=== PATIENT | male | born 1950 | race Caucasian/White ===

== ENCOUNTER 2019-02-08 13:49 | Inpatient (IN) | payer MEDICARE ==
[~2019-02-08] VITALS: Ht 185.4 cm; Wt 79.8 kg
[2019-02-08 16:00] VITALS: BP 148/79
--- NOTE | 2019-02-08 16:19 | HP ---
ADMIT DATE: 02/08/2019 CHIEF COMPLAINT AND HISTORY OF PRESENT ILLNESS: This is a 68-year-old white male well known to me from followup in the office. The patient came in because of abdominal pain, which has been going on for a week or so. He felt like he might have torn something in his abdomen working in the yard. His abdomen was quite distended in the office, diffusely tender with rebound tenderness. By his story, he did not have much of an appetite. Denied fevers and chills, was having no vomiting. Stools were working normally. He would notice after eating in about an hour that he would get more distended and more painful. Again, denied fevers or chills. Denied hematemesis, hematochezia, melena. He was felt to have an acute abdomen, admitted for CT scanning and surgical consultation. PAST MEDICAL HISTORY: Has been remarkable for history of vitamin B12 deficiency with a history of some depression and insomnia. Prior ring finger . MEDICATIONS: Include 40 mg of IM. recently. ALLERGIES: He has no known drug allergies. SOCIAL HISTORY: He is a smoker, does drink beer, does not use drugs. He is , lives alone. FAMILY HISTORY: Positive for atherosclerotic heart disease. REVIEW OF SYSTEMS: As mentioned above. PHYSICAL EXAMINATION: GENERAL: He is a well-developed, well-nourished white male, who appears uncomfortable. VITAL SIGNS: Stable. He is afebrile in the office. Pulse was elevated at 115. HEAD, EYES, EARS, NOSE AND THROAT: Remarkable for glasses. There is no icterus. NECK: Supple, without thyromegaly. CHEST: Clear to auscultation and percussion. HEART: Sinus tachycardia without S3, S4, or murmur. ABDOMEN: Very distended and diffusely tender with rebound, guarding throughout. He does have positive bowel sounds. EXTREMITIES: Without cyanosis, clubbing or edema. NEUROLOGIC: Intact. IMPRESSION: Acute abdomen with marked distention of uncertain etiology. PLAN: Admit. CT scanning, surgical consultation and plans to follow. TOYIN LUO MD DR: PHIL/sylvia JOB#: [id number] / [id number]
--- NOTE | 2019-02-08 17:15 | NUR ---
CALL PLACED TO DR. LUO FOR ORDERS DUE TO PATIENT IS A NEW ADMISSION, SPOKE WITH THE ANSWERING SERVICE, AWAITING A RETURN CALL AT THIS TIME.
--- NOTE | 2019-02-08 18:10 | NUR ---
CALL PLACED TO DR. LUO (SECOND CALL PLACED), SPOKE WITH THE ANSWERING SERVICE AND INFORMED THEM THAT THE RETURN CALL WAS FOR ORDERS AND THAT THIS WAS THE SECOND CALL. INFORMED THIS CASING CLEANER THAT SHE WOULD PLACE THE CALL AGAIN.
[2019-02-08 19:00] VITALS: BP 144/78
[2019-02-08] MEDS ORDERED: GABA300C18 PO (19:44)
[2019-02-08] MEDS ORDERED: TRAM50TA PO (19:44)
--- NOTE | 2019-02-08 19:50 | NUR ---
NURSING BENCH GRINDER NOTIFIED THAT THIS VISCOSITY TESTER HAD PLACED A CALL TO DR. LUO FOR NEW ADMISSION ORDERS TWICE BUT HAD NOT RECEIVED A CALL BACK, SHE INFORMED THIS VISCOSITY TESTER THAT SHE WOULD CALL/PAGE HIM AGAIN.
--- NOTE | 2019-02-08 20:43 | NUR ---
Dr Thomas notified about the patient as per survey supervisor. Dr Thomas gave the orders to restart the home medication and an order for DNR as per patient request.The nurse has restarted the home medication and put a DNR order.
[2019-02-08] MEDS ORDERED: traMADol 50 MG TABLET PO PRN (20:45)
[2019-02-08] MEDS: GABAPENTIN 300 MG CAPSULE. PO SCH (21:10)
[2019-02-08 23:00] VITALS: BP 138/83
--- NOTE | 2019-02-08 23:23 | NUR ---
The nurse paged Dr Gipson again for patient orders and the doctor did not return the call. This is after several attempts to reach him. The day shift nurse and the production assembly supervisor had tried reaching him with no success. The nurse had talked to Dr Thomas earlier on per production assembly supervisor instructions after failed attempts to reach Dr Gipson. Dr Thomas gave orders to restart the home medication and an order for DNR per patient request. Dr Thomas was unable to give more orders since he did not know the patient. The nurse administered the home Meds and discussed with the patient the benefits of not eating or drinking anything after midnight in anticipation of any procedure that might be done the following day. Patient decided on being NPO after midnight. The nurse will continue to monitor the patient.
[2019-02-09 03:00] VITALS: BP 148/82
[2019-02-09 07:00] VITALS: BP 153/84
[2019-02-09] MEDS: GABAPENTIN 300 MG CAPSULE. PO SCH ×3 (09:00→20:53)
[2019-02-09 09:45] LABS: BASO % 0 % (0-3); EOS % 0 % (0-3); HEMATOCRIT 35.6 % (39.0-53.0); HEMOGLOBIN 12.4 g/dL (13.0-17.5); LYMPH # 0.8 x10^3/uL (1.0-4.8); LYMPH % 10 % (24-48); MEAN CORPUSCULAR HEMOGLOBIN 33 pg (25-35); MEAN CORPUSCULAR HGB CONC 35 g/dL (31-37); MEAN CORPUSCULAR VOLUME 93 fL (79-100); MONO # 0.9 x10^3/uL (0.0-1.1); MONO % 12 % (0-9); NEUT # 6.2 x10^3uL (1.8-7.7); NEUT % 78 % (31-73); PLATELET COUNT 189 x10^3/uL (140-400); RED BLOOD COUNT 3.82 x10^6/uL (4.30-5.70); RED CELL DISTRIBUTION WIDTH 15.8 % (11.5-14.5)
[2019-02-09 09:50] LABS: ALBUMIN 1.9 g/dL (3.4-5.0); ALBUMIN/GLOBULIN RATIO 0.3 (1.0-1.7); CALCIUM 9.5 mg/dL (8.5-10.1); CREATININE 0.9 mg/dL (0.7-1.3); GFR 84.2; POTASSIUM 4.5 mmol/L (3.5-5.1); TOTAL BILIRUBIN 1.7 mg/dL (0.2-1.0); TOTAL PROTEIN 8.6 g/dL (6.4-8.2)
--- NOTE | 2019-02-09 10:13 | NUR ---
Patient getting frustrated about waiting for CT scan - CT called and they stated they are waiting on Dr. Gipson to return call on preference of Contrast options for the CT. Dr. Kellogg paged for his preference. Will continue to monitor.
[2019-02-09] MEDS ORDERED: CONTRAST GIVEN. MC PRN (10:45)
[2019-02-09] MEDS ORDERED: IOHEXOL 240 MG/ML 50ML VIAL. PO ONE (10:45)
[2019-02-09] MEDS ORDERED: IOHEXOL 300 MG/ML 100ML VIAL. IV ONE (10:45)
[2019-02-09 11:00] VITALS: BP 154/85
[2019-02-09] MEDS: MORPHINE SULFATE 2 MG/ML VIAL. IV PRN ×3 (12:16→23:06)
--- NOTE | 2019-02-09 12:19 | PDOC2 ---
CONSULT Date of Consult Date of Consult DATE: 02/09/19 TIME: 12:14 History of Present Illness Reason for Visit: The patient is a 68 year old male who was admitted due to progressing abdominal distension and pain. He states that he has noticed increasing distension over the last 2 weeks with no inciting factors. Over the last week he has noticed more persistent abdominal pain. The pain is fairly diffuse. He denies nausea or vomiting and has been able to eat normally. He has been passing gas and had a stool earlier today. Past Medical History Past Medical History chronic back pain, neuropathy Past Surgical History Past Surgical History denies Social History Quit ALCOHOL: other (significant prior history of alcohol use, none recently) Current Medications Current Medications Current Medications Gabapentin (Neurontin) 300 mg TID PO Last administered on 02/08/19at 21:10; Start 02/08/19 at 21:00 Tramadol HCl (Ultram) 50 mg PRN DAILY PRN PO PAIN Last administered on 02/08/19at 23:03; Start 02/08/19 at 20:45 Iohexol (Omnipaque 240 Mg/ml) 30 ml 1X ONCE PO Last administered on 02/09/19at 10:45; Start 02/09/19 at 10:45; Stop 02/09/19 at 10:46; Status DC Iohexol (Omnipaque 300 Mg/ml) 75 ml 1X ONCE IV Last administered on 02/09/19at 10:45; Start 02/09/19 at 10:45; Stop 02/09/19 at 10:46; Status DC Info (CONTRAST GIVEN -- Rx MONITORING) 1 each PRN DAILY PRN MC SEE COMMENTS; Start 02/09/19 at 10:45; Stop 02/11/19 at 10:44 Morphine Sulfate (Morphine Sulfate) 2 mg PRN Q2HR PRN IV PAIN; Start 02/09/19 at 12:15 Active Scripts Active Reported Tramadol Hcl 50 Mg Tablet 50 Mg PO DAILY PRN Gabapentin (Gabapentin) 300 Mg Capsule 300 Mg PO TID Allergies Allergies: Coded Allergies: No Known Drug Allergies (Unverified , 02/08/19) ROS General: No: Chills, Night Sweats, Fatigue, Malaise, Appetite, Other PSYCHOLOGICAL ROS: YES: Anxiety, Behavioral Disorder, Concentration difficultie , Decreased libido, Depression, Disorientation, Hallucinations, Hostility, Irritablity, Memory difficulties, Mood Swings, Obsessive thoughts, Physical a buse, Sexual abuse, Sleep disturbances, Suicidal ideation, Other HEENT: No: Heacaches, Visual Changes, Hearing change, Nasal congestion, Nasal discharge, Oral lesions, Sinus pain, Sore Throat, Epistaxis, Sneezing, Snoring, Tinnitus, Vertigo, Vocal changes, Other ALLERGY AND IMMUNOLOGY: No: Hives, Insect Bite Sensitivity, Itchy/Watery Eyes, Nasal Congestion, Post Nasal Drip, Seasonal Allergies, Other Hematological and Lymphatic: No: Bleeding Problems, Blood Clots, Blood Transfusions, Brusing, Night Sweats, Pallor, Swollen Lymph Nodes, Other ENDOCRINE: No: Breast Changes, Galactorrhea, Hair Pattern Changes, Hot Flashes, Malaise/lethargy, Mood Swings, Palpitations, Polydipsia/polyuria, Skin Changes, Temperature Intolerance, Unexpected Weight Changes, Other Respiratory: No: Cough, Hemoptysis, Orthopnea, Pleuritic Pain, Shortness of b reath, SOB with excertion, Sputum Changes, Stridor, Tachypnea, Wheezing, Other Cardiovascular: No Chest Pain, No Palpitations, No Orthopnea, No Paroxysmal Noc. Dyspnea, No Edema, No Lt Headedness, No Other Gastrointestinal: Yes Abdominal Pain, Yes Other (distension) Musculoskeletal: Yes Other Neurological: No Behavorial Changes, No Bowel/Bladder ControlChng, No Confusion, No Dizziness, No Gait Disturbance, No Headaches, No Impaired Coord/balance, No Memory Loss, No Numbness/Tingling, No Seizures, No Speech Problems, No Tremors, No Visual Changes, No Weakness, No Other Skin: No Dry Skin, No Eczema, No Hair Changes, No Lumps, No Mole Changes, No Mottling, No Nail Changes, No Pruritus, No Rash, No Skin Lesion Changes, No Other, No Acne Physical Exam General: Alert, Oriented X3 HEENT: Atraumatic Lungs: Clear to auscultation Heart: Regular rate Abdomen: Other (markedly distended, mildly tender with palpation diffusely) Extremities: No clubbing, No cyanosis Skin: No rashes Neuro: Normal speech Psych/Mental Status: Mental status NL Vitals VITALS Vital Signs Date Time Temp Pulse Resp B/P (MAP) Pulse Ox O2 Delivery O2 Flow Rate FiO2 02/09/19 11:00 98.0 90 16 154/85 (108) 97 Room Air 98.0 Labs Labs Laboratory Tests Test 02/09/19 09:05 White Blood Count 8.0 x10^3/uL (4.0-11.0) Red Blood Count 3.82 x10^6/uL (4.30-5.70) Hemoglobin 12.4 g/dL (13.0-17.5) Hematocrit 35.6 % (39.0-53.0) Mean Corpuscular Volume 93 fL (79-100) Mean Corpuscular Hemoglobin 33 pg (25-35) Mean Corpuscular Hemoglobin Concent 35 g/dL (31-37) Red Cell Distribution Width 15.8 % (11.5-14.5) Platelet Count 189 x10^3/uL (140-400) Neutrophils (%) (Auto) 78 % (31-73) Lymphocytes (%) (Auto) 10 % (24-48) Monocytes (%) (Auto) 12 % (0-9) Eosinophils (%) (Auto) 0 % (0-3) Basophils (%) (Auto) 0 % (0-3) Neutrophils # (Auto) 6.2 x10^3uL (1.8-7.7) Lymphocytes # (Auto) 0.8 x10^3/uL (1.0-4.8) Monocytes # (Auto) 0.9 x10^3/uL (0.0-1.1) Eosinophils # (Auto) 0.0 x10^3/uL (0.0-0.7) Basophils # (Auto) 0.0 x10^3/uL (0.0-0.2) Sodium Level 130 mmol/L (136-145) Potassium Level 4.5 mmol/L (3.5-5.1) Chloride Level 96 mmol/L (98-107) Carbon Dioxide Level 25 mmol/L (21-32) Anion Gap 9 (6-14) Blood Urea Nitrogen 12 mg/dL (8-26) Creatinine 0.9 mg/dL (0.7-1.3) Estimated GFR (Cockcroft-Gault) 84.2 BUN/Creatinine Ratio 13 (6-20) Glucose Level 76 mg/dL (70-99) Calcium Level 9.5 mg/dL (8.5-10.1) Total Bilirubin 1.7 mg/dL (0.2-1.0) Aspartate Amino Transf (AST/SGOT) 116 U/L (15-37) Alanine Aminotransferase (ALT/SGPT) 33 U/L (16-63) Alkaline Phosphatase 282 U/L (46-116) Total Protein 8.6 g/dL (6.4-8.2) Albumin 1.9 g/dL (3.4-5.0) Albumin/Globulin Ratio 0.3 (1.0-1.7) Laboratory Tests Test 02/09/19 09:05 White Blood Count 8.0 x10^3/uL (4.0-11.0) Red Blood Count 3.82 x10^6/uL (4.30-5.70) Hemoglobin 12.4 g/dL (13.0-17.5) Hematocrit 35.6 % (39.0-53.0) Mean Corpuscular Volume 93 fL (79-100) Mean Corpuscular Hemoglobin 33 pg (25-35) Mean Corpuscular Hemoglobin Concent 35 g/dL (31-37) Red Cell Distribution Width 15.8 % (11.5-14.5) Platelet Count 189 x10^3/uL (140-400) Neutrophils (%) (Auto) 78 % (31-73) Lymphocytes (%) (Auto) 10 % (24-48) Monocytes (%) (Auto) 12 % (0-9) Eosinophils (%) (Auto) 0 % (0-3) Basophils (%) (Auto) 0 % (0-3) Neutrophils # (Auto) 6.2 x10^3uL (1.8-7.7) Lymphocytes # (Auto) 0.8 x10^3/uL (1.0-4.8) Monocytes # (Auto) 0.9 x10^3/uL (0.0-1.1) Eosinophils # (Auto) 0.0 x10^3/uL (0.0-0.7) Basophils # (Auto) 0.0 x10^3/uL (0.0-0.2) Sodium Level 130 mmol/L (136-145) Potassium Level 4.5 mmol/L (3.5-5.1) Chloride Level 96 mmol/L (98-107) Carbon Dioxide Level 25 mmol/L (21-32) Anion Gap 9 (6-14) Blood Urea Nitrogen 12 mg/dL (8-26) Creatinine 0.9 mg/dL (0.7-1.3) Estimated GFR (Cockcroft-Gault) 84.2 BUN/Creatinine Ratio 13 (6-20) Glucose Level 76 mg/dL (70-99) Calcium Level 9.5 mg/dL (8.5-10.1) Total Bilirubin 1.7 mg/dL (0.2-1.0) Aspartate Amino Transf (AST/SGOT) 116 U/L (15-37) Alanine Aminotransferase (ALT/SGPT) 33 U/L (16-63) Alkaline Phosphatase 282 U/L (46-116) Total Protein 8.6 g/dL (6.4-8.2) Albumin 1.9 g/dL (3.4-5.0) Albumin/Globulin Ratio 0.3 (1.0-1.7) Assessment/Plan Assessment/Plan 68 year old male with marked abdominal distension, etiology unclear at this time. Labs and a CT scan have been ordered by Dr Gipson. Final recommendations pending further workup. I will follow, thanks for the consult. RADU TONY MD Feb 09, 2019 12:19
--- NOTE | 2019-02-09 12:21 | RAD ---
CT of the abdomen and pelvis with contrast, 02/09/2019: HISTORY: Abdominal pain and distention Multidetector CT imaging was performed following oral and IV administration of contrast. The heart is at the upper limits of normal in size. Coronary artery calcifications are present. There is a small amount of bilateral pleural fluid with mild associated atelectasis posteriorly in the lung bases. An incompletely visualized right lower lobe lucency likely reflects emphysema. There is a large volume of ascites with streaky mesenteric congestion and edema. The hepatic contour is irregular compatible with cirrhosis. There are several heterogeneous low density lesions in both lobes of the liver. While several of these could be cysts, others appear to be of higher density than simple cysts. The gallbladder is unremarkable. The pancreas is somewhat atrophic. The spleen is enlarged measuring 17 cm in craniocaudad extent. The kidneys show no evidence of obstruction. There is a 3 cm cyst in the lower pole the left kidney. A small low-density lesion in the upper pole the right kidney is too small to definitively characterize but is probably a cyst. There is moderate aortoiliac calcific plaquing. There are multiple small periaortic and pericaval lymph nodes without definite pathologic enlargement. The bowel loops are not dilated. There is a small hiatal hernia. There are adjacent nodular densities probably representing varices. A recanalized umbilical vein is evident. The portal vein is enlarged just to the right of midline measuring 3.4 cm. There is lack of enhancement of this structure lateral to this level compatible with portal vein thrombosis. No free air is evident in the abdomen. Moderate multilevel degenerative changes are present in the spine. There is a mild superior endplate deformity at L3 of indeterminate age. IMPRESSION: 1. Hepatic cirrhosis with low density lesions in both lobes of the liver raising the possibility of hepatocellular carcinoma or metastatic disease. 2. Splenomegaly. 3. Portal vein thrombosis. 4. Extensive mesenteric congestion and edema with a large volume of ascites. 5. Probable esophageal varices. 6. Small bilateral pleural effusions with bibasilar atelectasis. PQRS Compliance Statement: One or more of the following individualized dose reduction techniques were utilized for this examination: 1. Automated exposure control 2. Adjustment of the mA and/or kV according to patient size 3. Use of iterative reconstruction technique Electronically signed by: Rosas Alves MD (02/09/2019 12:19 PM) [facility]
[2019-02-09] MEDS: traMADol 50 MG TABLET PO PRN ×2 (14:32→20:53)
--- NOTE | 2019-02-09 14:56 | PDOC2 ---
GI CONSULT Reason For Consult: hepatic cirrhosis with lesions in aneesh liver lobes HPI: HPI: 68 y/o male directly admitted yesterday evening w/ concern for acute abdomen and need for surgical evaluation. CT today showed cirrhosis w/ liver lesions, splenomegaly, portal vein thrombosis, extensive mesenteric congestion w/ large volume ascites, probable esophageal varices, and small bilateral pleural effusions. We are asked to see re: CT findings. Labs notable for normal WBC, Hgb 12.4 w/ MCV 93, normal plt, Na 130, bili 1.7, AST 116, ALT 33, Alk Phos 282, albumin 1.9. He reports bloating x 2 weeks and diffuse abdominal pain x 1 week. No precipitating events though he has been doing a lot of yard work. No heartburn/reflux, dysphagia, n/v, change in appetite, weight loss, diarrhea, constipation, hematochezia, or melena. No h/o liver disease, hepatitis, blood transfusions, or IVDU. Used to drink a 6 pack of beer daily but quit 3 years ago. No GB or pancreas history - gallbladder was unremarkable on CT and pancreas was somewhat atrophic. No PUD history. No previous EGD. Colonoscopy for screening and change in bowel habits/diarrhea by Dr. Villa in 03/2015 showed medium-sized internal hemorrhoids, normal mucosa throughout the entire colon, 3mm hyperplastic polyp in the ascending colon, and 8mm tubulovillous adenoma in the distal sigmoid colon. No NSAID use. PMH: PMH: insomnia, B12 deficiency, neuropathy, arthritis, colon polyps, depression, alcohol abuse FH: Family History: No pertinent hx (denies cancers and liver disease) Social History: Smoke: Quit ALCOHOL: other (6 pack of beer daily in the past, sober x 3 years) Drugs: None ROS: GEN: Denies fevers, chills, sweats HEENT: Denies blurred vision, sore throat CV: Denies chest pain RESP: Denies shortness of air, cough GI: Per HPI : Denies hematuria, dysuria ENDO: Denies weight changes NEURO: Denies confusion, dizziness MSK: Denies weakness, joint pain/swelling SKIN: Denies jaundice, pruritus Vitals: Vitals: Vital Signs Date Time Temp Pulse Resp B/P (MAP) Pulse Ox O2 Delivery O2 Flow Rate FiO2 02/09/19 13:51 97 Room Air 02/09/19 11:00 98.0 90 16 154/85 (108) 98.0 Labs: Labs: Laboratory Tests Test 02/09/19 09:05 White Blood Count 8.0 x10^3/uL (4.0-11.0) Red Blood Count 3.82 x10^6/uL (4.30-5.70) Hemoglobin 12.4 g/dL (13.0-17.5) Hematocrit 35.6 % (39.0-53.0) Mean Corpuscular Volume 93 fL (79-100) Mean Corpuscular Hemoglobin 33 pg (25-35) Mean Corpuscular Hemoglobin Concent 35 g/dL (31-37) Red Cell Distribution Width 15.8 % (11.5-14.5) Platelet Count 189 x10^3/uL (140-400) Neutrophils (%) (Auto) 78 % (31-73) Lymphocytes (%) (Auto) 10 % (24-48) Monocytes (%) (Auto) 12 % (0-9) Eosinophils (%) (Auto) 0 % (0-3) Basophils (%) (Auto) 0 % (0-3) Neutrophils # (Auto) 6.2 x10^3uL (1.8-7.7) Lymphocytes # (Auto) 0.8 x10^3/uL (1.0-4.8) Monocytes # (Auto) 0.9 x10^3/uL (0.0-1.1) Eosinophils # (Auto) 0.0 x10^3/uL (0.0-0.7) Basophils # (Auto) 0.0 x10^3/uL (0.0-0.2) Sodium Level 130 mmol/L (136-145) Potassium Level 4.5 mmol/L (3.5-5.1) Chloride Level 96 mmol/L (98-107) Carbon Dioxide Level 25 mmol/L (21-32) Anion Gap 9 (6-14) Blood Urea Nitrogen 12 mg/dL (8-26) Creatinine 0.9 mg/dL (0.7-1.3) Estimated GFR (Cockcroft-Gault) 84.2 BUN/Creatinine Ratio 13 (6-20) Glucose Level 76 mg/dL (70-99) Calcium Level 9.5 mg/dL (8.5-10.1) Total Bilirubin 1.7 mg/dL (0.2-1.0) Aspartate Amino Transf (AST/SGOT) 116 U/L (15-37) Alanine Aminotransferase (ALT/SGPT) 33 U/L (16-63) Alkaline Phosphatase 282 U/L (46-116) Total Protein 8.6 g/dL (6.4-8.2) Albumin 1.9 g/dL (3.4-5.0) Albumin/Globulin Ratio 0.3 (1.0-1.7) Allergies: Coded Allergies: No Known Drug Allergies (Unverified , 02/08/19) Medications: Current Medications Medications (Trade) Dose Ordered Sig/Veto Route PRN Reason Start Time Stop Time Status Last Admin Dose Admin Gabapentin (Neurontin) 300 mg TID PO 02/08/19 21:00 02/08/19 21:10 Tramadol HCl (Ultram) 50 mg PRN DAILY PRN PO PAIN 02/08/19 20:45 02/09/19 13:55 DC 02/08/19 23:03 Iohexol (Omnipaque 240 Mg/ml) 30 ml 1X ONCE PO 02/09/19 10:45 02/09/19 10:46 DC 02/09/19 10:45 Iohexol (Omnipaque 300 Mg/ml) 75 ml 1X ONCE IV 02/09/19 10:45 02/09/19 10:46 DC 02/09/19 10:45 Morphine Sulfate (Morphine Sulfate) 2 mg PRN Q2HR PRN IV PAIN 02/09/19 12:15 02/09/19 12:16 Imaging: Imaging: CT A/P w/ oral and IV contrast 02/09/19 The heart is at the upper limits of normal in size. Coronary artery calcifications are present. There is a small amount of bilateral pleural fluid with mild associated atelectasis posteriorly in the lung bases. An incompletely visualized right lower lobe lucency likely reflects emphysema. There is a large volume of ascites with streaky mesenteric congestion and edema. The hepatic contour is irregular compatible with cirrhosis. There are several heterogeneous low density lesions in both lobes of the liver. While several of these could be cysts, others appear to be of higher density than simple cysts. The gallbladder is unremarkable. The pancreas is somewhat atrophic. The spleen is enlarged measuring 17 cm in craniocaudad extent. The kidneys show no evidence of obstruction. There is a 3 cm cyst in the lower pole the left kidney. A small low-density lesion in the upper pole the right kidney is too small to definitively characterize but is probably a cyst. There is moderate aortoiliac calcific plaquing. There are multiple small periaortic and pericaval lymph nodes without definite pathologic enlargement. The bowel loops are not dilated. There is a small hiatal hernia. There are adjacent nodular densities probably representing varices. A recanalized umbilical vein is evident. The portal vein is enlarged just to the right of midline measuring 3.4 cm. There is lack of enhancement of this structure lateral to this level compatible with portal vein thrombosis. No free air is evident in the abdomen. Moderate multilevel degenerative changes are present in the spine. There is a mild superior endplate deformity at L3 of indeterminate age. IMPRESSION: 1. Hepatic cirrhosis with low density lesions in both lobes of the liver raising the possibility of hepatocellular carcinoma or metastatic disease. 2. Splenomegaly. 3. Portal vein thrombosis. 4. Extensive mesenteric congestion and edema with a large volume of ascites. 5. Probable esophageal varices. 6. Small bilateral pleural effusions with bibasilar atelectasis. PE: GEN: NAD HEENT: Atraumatic, PERRL LUNGS: CTAB HEART: RRR ABD: NABS, significantly distended w/ tightness and discomfort, reducible umbilical hernia EXTREMITY: trace BLE edema SKIN: No rashes, no jaundice NEURO/PSYCH: A & O 3, anxious A/P: A/P: Abd distention/discomfort Normocytic anemia, hyponatremia, hypoalbuminemia, abnormal LFTs Abnormal CT w/ cirrhosis and liver lesions, splenomegaly, portal vein t hrombosis, large volume ascites, probable esophageal varices H/o alcohol overuse - says sober x 3 years CRC screen, h/o TVA - had colonoscopy in 2014 -- Returned to see w/ Dr. Villa. Will check additional labs and imaging (see orders) and ask for paracentesis w/ fluid studies. Okay to eat per GI. Note paracentesis was rescheduled for tomorrow per IRDEBORAH VALDES Feb 09, 2019 14:56
[2019-02-09 14:59] LABS: PROTHROMBIN TIME PATIENT 15.7 SEC (11.7-14.0)
[2019-02-09 15:00] VITALS: BP 149/83
--- NOTE | 2019-02-09 16:03 | RAD ---
Deep Doppler abdominal ultrasound, 02/09/2019: HISTORY: Abdominal pain, portal vein thrombosis Duplex evaluation of the hepatic vasculature was performed utilizing grayscale, color-flow and spectral Doppler analysis. The hepatic artery is unremarkable. A patent main portal vein could not be identified. There is a tubular structure of medium echogenicity at the gabrielle hepatis level compatible with a distended, thrombosed portal vein. There are additional serpiginous vessels at the gabrielle hepatis probably representing collateral veins. Patent hepatic veins are evident. Incidental note is made of irregularity of the hepatic contour compatible cirrhosis with a markedly heterogeneous internal echo pattern. There is a large volume of ascites. These findings were delineated on the current CT study. IMPRESSION: Enlarged, thrombosed main portal vein. Electronically signed by: Rosas Alves MD (02/09/2019 4:00 PM) [facility]
[2019-02-09 19:00] VITALS: BP 139/78
--- NOTE | 2019-02-09 22:19 | PN ---
DATE: 02/09/2019 DAILY PROGRESS NOTE LOCATION: Room 510. SUBJECTIVE: The patient is awake and alert, still with abdominal pain and no appetite. OBJECTIVE: VITAL SIGNS: Stable. He is afebrile. CHEST: Clear. HEART: Regular. ABDOMEN: Distended and diffusely tender. Since last evening, pain with distention of uncertain etiology. PLAN: Surgical consultations. We will do lab with plans to follow. TOYIN LUO MD DR: PHIL/sylvia JOB#: [id number] / [id number]
[2019-02-09 23:00] VITALS: BP 157/88
[2019-02-09 23:08] LABS: AFPT MARKER 34.3 ng/mL (0.0-8.3)
[2019-02-10] VITALS (9 sets, daily range): BP systolic 137–169; BP diastolic 75–90
[2019-02-10] MEDS: traMADol 50 MG TABLET PO PRN ×4 (03:17→23:52)
[2019-02-10 04:37] LABS: HEMATOCRIT 36.8 % (39.0-53.0); HEMOGLOBIN 12.6 g/dL (13.0-17.5); RED BLOOD COUNT 3.9 x10^6/uL (4.30-5.70); WHITE BLOOD COUNT 7.1 x10^3/uL (4.0-11.0)
[2019-02-10 04:53] LABS: ALBUMIN 1.9 g/dL (3.4-5.0); ALBUMIN/GLOBULIN RATIO 0.3 (1.0-1.7); CALCIUM 9.6 mg/dL (8.5-10.1); CREATININE 0.9 mg/dL (0.7-1.3); GFR 84.2; POTASSIUM 4.3 mmol/L (3.5-5.1); TOTAL BILIRUBIN 1.5 mg/dL (0.2-1.0); TOTAL PROTEIN 8.6 g/dL (6.4-8.2)
[2019-02-10] MEDS: GABAPENTIN 300 MG CAPSULE. PO SCH ×3 (08:16→22:15)
--- NOTE | 2019-02-10 08:47 | NUR ---
SW following pt for anticipated dc needs. Chart reviewed and pt is from home with family. No SW needs noted at this time.
--- NOTE | 2019-02-10 11:00 | PDOC ---
Subjective: Subjective: Better after paracentesis. Objective: Vital Signs: Vital Signs Date Time Temp Pulse Resp B/P (MAP) Pulse Ox O2 Delivery O2 Flow Rate FiO2 02/10/19 09:53 81 15 139/78 (98) 97 Room Air 02/10/19 07:00 98.0 98.0 Labs: Laboratory Tests Test 02/09/19 16:10 02/10/19 03:20 Tumor Marker Alpha Fetoprotein 34.3 ng/mL Carcinoembryonic Antigen Pending CA 19-9 Antigen Pending Hepatitis A IgM Antibody Nonreactive Hepatitis B Surface Antigen Nonreactive Hepatitis B Core IgM Antibody Nonreactive Hepatitis C IgG Antibody Reactive White Blood Count 7.1 x10^3/uL Red Blood Count 3.90 x10^6/uL Hemoglobin 12.6 g/dL Hematocrit 36.8 % Mean Corpuscular Volume 94 fL Mean Corpuscular Hemoglobin 32 pg Mean Corpuscular Hemoglobin Concent 34 g/dL Red Cell Distribution Width 16.0 % Platelet Count 194 x10^3/uL Sodium Level 131 mmol/L Potassium Level 4.3 mmol/L Chloride Level 96 mmol/L Carbon Dioxide Level 27 mmol/L Anion Gap 8 Blood Urea Nitrogen 13 mg/dL Creatinine 0.9 mg/dL Estimated GFR (Cockcroft-Gault) 84.2 BUN/Creatinine Ratio 14 Glucose Level 83 mg/dL Calcium Level 9.6 mg/dL Total Bilirubin 1.5 mg/dL Aspartate Amino Transf (AST/SGOT) 107 U/L Alanine Aminotransferase (ALT/SGPT) 33 U/L Alkaline Phosphatase 282 U/L Total Protein 8.6 g/dL Albumin 1.9 g/dL Albumin/Globulin Ratio 0.3 Imaging: Abd Doppler 02/09 The hepatic artery is unremarkable. A patent main portal vein could not be identified. There is a tubular structure of medium echogenicity at the gabrielle hepatis level compatible with a distended, thrombosed portal vein. There are additional serpiginous vessels at the gabrielle hepatis probably representing collateral veins. Patent hepatic veins are evident. Incidental note is made of irregularity of the hepatic contour compatible cirrhosis with a markedly heterogeneous internal echo pattern. There is a large volume of ascites. These findings were delineated on the current CT study. IMPRESSION: Enlarged, thrombosed main portal vein. Paracentesis 02/10 report pending PE: GEN: NAD LUNGS: CTAB HEART: RRR ABD: softer, less distended, non-tender NEURO/PSYCH: A & O 3, anxious A/P: Cirrhosis, liver lesions (on CT), PVT, ascites - now s/p paracentesis H/o alcohol abuse - now sober Hep C Ab + - PCR pending Elevated AFP -- Await fluid studies. Will review w/ Dr. Villa. DEBORAH YAN Feb 10, 2019 11:00
--- NOTE | 2019-02-10 12:14 | PDOC ---
PROGRESS NOTES Subjective Subjective resting quietly, less pain after paracentesis Objective Objective Vital Signs Date Time Temp Pulse Resp B/P (MAP) Pulse Ox O2 Delivery O2 Flow Rate FiO2 02/10/19 11:12 Room Air 02/10/19 11:00 97.7 83 17 152/85 (107) 95 97.7 Intake and Output 02/10/19 06:59 Intake Total 1040 ml Balance 1040 ml Intake Oral 1040 ml # Voids 3 Physical Exam Abdomen: Soft, No tenderness Heart: Regular rate Extremities: No clubbing, No cyanosis General: Alert, Oriented X3 HEENT: Atraumatic Lungs: Clear to auscultation Psych/Mental Status: Mental status NL Assessment Assessment Cirrhosis, ascites, portal vein thrombosis Plan Plan of Care No surgical recs, await final GI plans Comment Review of Relevant I have reviewed the following items alena (where applicable) has been applied. Labs Laboratory Tests Test 02/09/19 09:05 02/09/19 16:10 02/10/19 03:20 White Blood Count 8.0 x10^3/uL (4.0-11.0) 7.1 x10^3/uL (4.0-11.0) Red Blood Count 3.82 x10^6/uL (4.30-5.70) 3.90 x10^6/uL (4.30-5.70) Hemoglobin 12.4 g/dL (13.0-17.5) 12.6 g/dL (13.0-17.5) Hematocrit 35.6 % (39.0-53.0) 36.8 % (39.0-53.0) Mean Corpuscular Volume 93 fL (79-100) 94 fL (79-100) Mean Corpuscular Hemoglobin 33 pg (25-35) 32 pg (25-35) Mean Corpuscular Hemoglobin Concent 35 g/dL (31-37) 34 g/dL (31-37) Red Cell Distribution Width 15.8 % (11.5-14.5) 16.0 % (11.5-14.5) Platelet Count 189 x10^3/uL (140-400) 194 x10^3/uL (140-400) Neutrophils (%) (Auto) 78 % (31-73) Lymphocytes (%) (Auto) 10 % (24-48) Monocytes (%) (Auto) 12 % (0-9) Eosinophils (%) (Auto) 0 % (0-3) Basophils (%) (Auto) 0 % (0-3) Neutrophils # (Auto) 6.2 x10^3uL (1.8-7.7) Lymphocytes # (Auto) 0.8 x10^3/uL (1.0-4.8) Monocytes # (Auto) 0.9 x10^3/uL (0.0-1.1) Eosinophils # (Auto) 0.0 x10^3/uL (0.0-0.7) Basophils # (Auto) 0.0 x10^3/uL (0.0-0.2) Prothrombin Time 15.7 SEC (11.7-14.0) Prothromb Time International Ratio 1.3 (0.8-1.1) Sodium Level 130 mmol/L (136-145) 131 mmol/L (136-145) Potassium Level 4.5 mmol/L (3.5-5.1) 4.3 mmol/L (3.5-5.1) Chloride Level 96 mmol/L (98-107) 96 mmol/L (98-107) Carbon Dioxide Level 25 mmol/L (21-32) 27 mmol/L (21-32) Anion Gap 9 (6-14) 8 (6-14) Blood Urea Nitrogen 12 mg/dL (8-26) 13 mg/dL (8-26) Creatinine 0.9 mg/dL (0.7-1.3) 0.9 mg/dL (0.7-1.3) Estimated GFR (Cockcroft-Gault) 84.2 84.2 BUN/Creatinine Ratio 13 (6-20) 14 (6-20) Glucose Level 76 mg/dL (70-99) 83 mg/dL (70-99) Calcium Level 9.5 mg/dL (8.5-10.1) 9.6 mg/dL (8.5-10.1) Total Bilirubin 1.7 mg/dL (0.2-1.0) 1.5 mg/dL (0.2-1.0) Aspartate Amino Transf (AST/SGOT) 116 U/L (15-37) 107 U/L (15-37) Alanine Aminotransferase (ALT/SGPT) 33 U/L (16-63) 33 U/L (16-63) Alkaline Phosphatase 282 U/L (46-116) 282 U/L (46-116) Total Protein 8.6 g/dL (6.4-8.2) 8.6 g/dL (6.4-8.2) Albumin 1.9 g/dL (3.4-5.0) 1.9 g/dL (3.4-5.0) Albumin/Globulin Ratio 0.3 (1.0-1.7) 0.3 (1.0-1.7) Tumor Marker Alpha Fetoprotein 34.3 ng/mL (0.0-8.3) Hepatitis A IgM Antibody Nonreactive (Nonreactive) Hepatitis B Surface Antigen Nonreactive (Nonreactive) Hepatitis B Core IgM Antibody Nonreactive (Nonreactive) Hepatitis C IgG Antibody Reactive (Nonreactive) Laboratory Tests Test 02/09/19 16:10 02/10/19 03:20 Tumor Marker Alpha Fetoprotein 34.3 ng/mL (0.0-8.3) Hepatitis A IgM Antibody Nonreactive (Nonreactive) Hepatitis B Surface Antigen Nonreactive (Nonreactive) Hepatitis B Core IgM Antibody Nonreactive (Nonreactive) Hepatitis C IgG Antibody Reactive (Nonreactive) White Blood Count 7.1 x10^3/uL (4.0-11.0) Red Blood Count 3.90 x10^6/uL (4.30-5.70) Hemoglobin 12.6 g/dL (13.0-17.5) Hematocrit 36.8 % (39.0-53.0) Mean Corpuscular Volume 94 fL (79-100) Mean Corpuscular Hemoglobin 32 pg (25-35) Mean Corpuscular Hemoglobin Concent 34 g/dL (31-37) Red Cell Distribution Width 16.0 % (11.5-14.5) Platelet Count 194 x10^3/uL (140-400) Sodium Level 131 mmol/L (136-145) Potassium Level 4.3 mmol/L (3.5-5.1) Chloride Level 96 mmol/L (98-107) Carbon Dioxide Level 27 mmol/L (21-32) Anion Gap 8 (6-14) Blood Urea Nitrogen 13 mg/dL (8-26) Creatinine 0.9 mg/dL (0.7-1.3) Estimated GFR (Cockcroft-Gault) 84.2 BUN/Creatinine Ratio 14 (6-20) Glucose Level 83 mg/dL (70-99) Calcium Level 9.6 mg/dL (8.5-10.1) Total Bilirubin 1.5 mg/dL (0.2-1.0) Aspartate Amino Transf (AST/SGOT) 107 U/L (15-37) Alanine Aminotransferase (ALT/SGPT) 33 U/L (16-63) Alkaline Phosphatase 282 U/L (46-116) Total Protein 8.6 g/dL (6.4-8.2) Albumin 1.9 g/dL (3.4-5.0) Albumin/Globulin Ratio 0.3 (1.0-1.7) Medications Current Medications Gabapentin (Neurontin) 300 mg TID PO Last administered on 02/10/19at 08:16; Start 02/08/19 at 21:00 Tramadol HCl (Ultram) 50 mg PRN DAILY PRN PO PAIN Last administered on 02/08/19at 23:03; Start 02/08/19 at 20:45; Stop 02/09/19 at 13:55; Status DC Iohexol (Omnipaque 240 Mg/ml) 30 ml 1X ONCE PO Last administered on 02/09/19at 10:45; Start 02/09/19 at 10:45; Stop 02/09/19 at 10:46; Status DC Iohexol (Omnipaque 300 Mg/ml) 75 ml 1X ONCE IV Last administered on 02/09/19at 10:45; Start 02/09/19 at 10:45; Stop 02/09/19 at 10:46; Status DC Info (CONTRAST GIVEN -- Rx MONITORING) 1 each PRN DAILY PRN MC SEE COMMENTS; Start 02/09/19 at 10:45; Stop 02/11/19 at 10:44 Morphine Sulfate (Morphine Sulfate) 2 mg PRN Q2HR PRN IV PAIN Last administered on 02/09/19at 23:06; Start 02/09/19 at 12:15 Tramadol HCl (Ultram) 100 mg PRN Q6HRS PRN PO PAIN Last administered on 02/10/19at 11:12; Start 02/09/19 at 14:00 Active Scripts Active Reported Tramadol Hcl 50 Mg Tablet 100 Mg PO PRN Q6HRS PRN Gabapentin (Gabapentin) 300 Mg Capsule 300 Mg PO TID Vitals/I & O Vital Sign - Last 24 Hours 02/09/19 02/09/19 02/09/19 02/09/19 12:16 14:32 15:00 15:48 Temp 97.7 97.7 Pulse 95 Resp 16 B/P (MAP) 149/83 (105) Pulse Ox 98 O2 Delivery Room Air Room Air Room Air Room Air 02/09/19 02/09/19 02/09/19 02/09/19 19:00 20:00 20:53 23:00 Temp 98.1 98.4 98.1 98.4 Pulse 88 96 Resp 18 15 18 B/P (MAP) 139/78 (98) 157/88 (111) Pulse Ox 93 93 96 O2 Delivery Room Air Room Air Room Air Room Air 02/09/19 02/10/19 02/10/19 02/10/19 23:06 00:00 03:00 03:17 Temp 98.6 98.6 Pulse 90 Resp 16 18 14 B/P (MAP) 139/90 (106) Pulse Ox 93 93 94 93 O2 Delivery Room Air Room Air Room Air Room Air 02/10/19 02/10/19 02/10/19 02/10/19 04:26 07:00 08:00 09:25 Temp 98.0 98.0 Pulse 82 90 Resp 18 16 B/P (MAP) 145/75 (98) 160/80 (106) Pulse Ox 93 92 95 O2 Delivery Room Air Room Air Room Air Room Air 02/10/19 02/10/19 02/10/19 02/10/19 09:40 09:53 11:00 11:12 Temp 97.7 97.7 Pulse 85 81 83 Resp 15 15 17 B/P (MAP) 137/75 (95) 139/78 (98) 152/85 (107) Pulse Ox 96 97 95 O2 Delivery Room Air Room Air Room Air Room Air Intake and Output 02/09/19 02/09/19 02/10/19 14:59 22:59 06:59 Intake Total 0 ml 640 ml 400 ml Balance 0 ml 640 ml 400 ml RADU TONY MD Feb 10, 2019 12:14
[2019-02-10 12:20] LABS: BF CLARITY CLEAR; BF COLOR STRAW; BF RBC COUNT 30 /cmm (Not Established); BF SOURCE ASCITES; BF WBC COUNT 215 /cmm (Not Established)
[2019-02-10 12:36] LABS: BF OTHER % 18 %; BF PMN % 3 %
[2019-02-10 12:37] LABS: BF MON % 79 %
--- NOTE | 2019-02-10 13:06 | RAD ---
Ultrasound-guided paracentesis 02/10/2019 1:03 PM Procedure: The risks and benefits of the procedure were discussed the patient. Informed consent was obtained. A timeout procedure was performed. Sonographic evaluation of the abdomen was performed demonstrating ascites . The right lower quadrant was prepped and draped using maximum sterile barrier technique. 1% lidocaine without epinephrine was administered for local anesthesia. Real-time ultrasonographic guidance was used in passing a 5 Ma[place] Yueh catheter into the fluid collection. 3 L of serous ascites was removed. The catheter was removed and pressure held to achieve hemostasis. A sterile dressing was applied. Impression: Successful ultrasound-guided paracentesis
--- NOTE | 2019-02-10 15:04 | PDOC ---
Provider Note Provider Note IR NOTE Paracentesis completed today. Cirrhotic liver morphology, Hx HCV, liver nodules, and elevated AFP. Findings raise concern for hepatocellular carcinoma. Plan to await results of cytology and consider image guided liver biopsy based on result. Patient would be higher risk for bleeding given ascites. A concomitant abdominal drain would be considered. Also would have to work around anticoagulation, if initiated to portal venous thrombosis. DENNISE NORTON MD Feb 10, 2019 15:04
--- NOTE | 2019-02-10 20:50 | PN ---
DATE: 02/10/2019 LOCATION: Room ____. SUBJECTIVE: The patient is awake and alert ____ abdominal pain, is still with significant ____. OBJECTIVE: VITAL SIGNS: Stable. He is afebrile. His exam is stable without any distention of the abdomen, no icterus. Alpha-fetoprotein is elevated. ____ CEA and CA 19-9 antigens are pending. Hepatitis C antibody is positive. IMAGING: Yesterday shows an x-ray ____ densely lesions in both lobes of the liver, raising the possibility of hepatocellular carcinoma, metastatic disease, he had splenomegaly, portal vein thrombosis, extensive mesenteric congestion ____ ascites, probable esophageal varices. Surgery and GI have been appreciated. ASSESSMENT: Abdominal pain due to ascites, likely accelerated due to portal vein thrombosis, with history of hepatitis C and possible hepatocellular carcinoma. PLAN: Await paracentesis today with results ____ with plans on therapy to be based on preliminary investigation. TOYIN LUO MD DR: PHIL/sylvia JOB#: [id number] / [id number]
[2019-02-11] VITALS (7 sets, daily range): BP systolic 132–149; BP diastolic 74–81
[2019-02-11] MEDS: traMADol 50 MG TABLET PO PRN ×2 (06:05→17:24)
[2019-02-11] MEDS: GABAPENTIN 300 MG CAPSULE. PO SCH ×3 (08:11→20:53)
--- NOTE | 2019-02-11 09:39 | PDOC ---
Subjective: Subjective: Feeling better - would like to go home tomorrow. Objective: Objective: D/w Dr. Ugarte earlier this morning - anticoag recs depending on size of esophageal varices, also wondering about our recs for Hep C treatment. D/w Dr. Villa - could proceed w/ EGD this afternoon. Reviewed IR note - consider liver biopsy later, high risk for bleeding w/ ascites and if need for anti-coagulation. Vital Signs: Vital Signs Date Time Temp Pulse Resp B/P (MAP) Pulse Ox O2 Delivery O2 Flow Rate FiO2 02/11/19 08:11 Room Air 02/11/19 07:00 98.4 85 16 138/79 (98) 91 98.4 PE: GEN: NAD LUNGS: CTAB HEART: RRR ABD: some distention/ascites - improved NEURO/PSYCH: A & O 3 A/P: Cirrhosis w/ ascites and liver lesions w/ elevated AFP and PVT - h/o alcohol abuse, +Hep C Ab, concern for HCC -- He agrees to EGD this afternoon for evaluation of esophageal varices. DC soon? DEBORAH YAN Feb 11, 2019 09:39
--- NOTE | 2019-02-11 09:49 | PDOC2 ---
CONSULT Date of Consult Date of Consult DATE: 02/11/19 TIME: 09:39 Reason for consultation: Portal vein thrombosis Consult: Hematology oncology, Dr. Edward Ugarte History of present illness: He is a 68-year-old man with abdominal pain, acute, worsening over the last couple weeks, associated with bloating, the abdominal pain was diffuse, moderate, and immediately improved after 3 L paracentesis of serous fluid. He also has evidence of portal vein thrombosis and concern for liver lesions that could be metastatic with cirrhosis. Past medical history: Back pain Neuropathy Liver masses Cirrhosis splenomegaly Portal vein thrombus Hepatitis C positive, never treated, did not know he had at, unsure where he got it Likely esophageal varices Ascites Bilateral pleural effusions Hyponatremia Past surgical history: Paracentesis Colonoscopy Allergies: No known drug allergies Medications: See attached list Social history: 3 children, 6 grandchildren, since 2014, lives alone, quit tobacco in August 2018, heavy drinking in the past but quit a few years ago, would like to get home for Father's Day Family history: Heart disease Review of systems: Weight loss, abdominal pain improved after paracentesis, chronic back pain, otherwise denies current 10 point review of systems Physical exam: Vitals reviewed Gen.: Thin elderly man in no acute distress, resting in bed HEENT: mucous membranes moist, head normocephalic atraumatic Neck: Supple, no lymphadenopathy Lymph nodes: No palpable lymphadenopathy neck or axilla Lungs: Breathing comfortably w/o respiratory distress Abdomen: Soft, nontender, slightly distended Extremities: No cyanosis or edema, spoon nails, no asterixis Skin: No obvious rashes or skin breakdown Neuro: Alert and oriented 3 Psych: Normal mood and affect Lab reviewed: White count 7.1, hemoglobin 12.6, platelets 194, INR 1.3 T bili 1.5 Creatinine 0.9 Albumin 1.9 AFP 34 Hepatitis C positive Rads reviewed: 09 February abdomen ultrasound with enlarged thrombosed main portal vein and CT abdomen and pelvis with cirrhosis, bilateral liver lesions, splenomegaly to 17 cm, portal vein thrombosis, extensive mesenteric congestion and edema, with large volume ascites, probable varices, and small bilateral pleural effusions Case discussed with: Patient, records reviewed in [facility] and [facility] as available, including labs and radiology, please see note for summary details. Assessment and Plan: He is a 68-year-old man with evidence of cirrhosis, elevated alpha-fetoprotein, liver lesions, portal vein thrombosis, and possible varices. Abdomen symptoms improved post paracentesis for ascites. Concern for hepatocellular carcinoma: Alpha-fetoprotein only slightly enlarged elevated, could be related to hepatitis C, would agree with biopsy of liver lesion if cytology from paracentesis negative Portal vein thrombosis: Would agree with treatment with anticoagulation, platelet count is normal, INR is less than 1.5, however would want to ensure no large varices, would recommend EGD to assess varices prior to beginning a nticoagulation, would recommend 6 months initially, CEA and CA a 19 9 are pending, regarding anticoagulation could start treatment dose Lovenox if no large varices versus novel anticoagulant, novel anticoagulant preferred to Coumadin in his case likely as the INR could be affected by his underlying liver disease, and renal function is normal, could consider low-dose apixaban if con cerned for risk for bleeding Ascites: We'll have to see if it continues to recur, potential drain? Hepatitis C: Wonder if he would benefit from treatment at this point? Have asked GI to comment Disposition: He would like to be home for Father's Day Thank you kindly for this consultation, and please don't hesitate to call me with any questions, also the on-call physician will be available over the weekend as needed. Social History Quit ALCOHOL: other (6 pack of beer daily in the past, sober x 3 years) Drugs: None Current Medications Current Medications Current Medications Gabapentin (Neurontin) 300 mg TID PO Last administered on 02/11/19at 08:11; Start 02/08/19 at 21:00 Tramadol HCl (Ultram) 50 mg PRN DAILY PRN PO PAIN Last administered on 02/08/19at 23:03; Start 02/08/19 at 20:45; Stop 02/09/19 at 13:55; Status DC Iohexol (Omnipaque 240 Mg/ml) 30 ml 1X ONCE PO Last administered on 02/09/19at 10:45; Start 02/09/19 at 10:45; Stop 02/09/19 at 10:46; Status DC Iohexol (Omnipaque 300 Mg/ml) 75 ml 1X ONCE IV Last administered on 02/09/19at 10:45; Start 02/09/19 at 10:45; Stop 02/09/19 at 10:46; Status DC Info (CONTRAST GIVEN -- Rx MONITORING) 1 each PRN DAILY PRN MC SEE COMMENTS; Start 02/09/19 at 10:45; Stop 02/11/19 at 10:44 Morphine Sulfate (Morphine Sulfate) 2 mg PRN Q2HR PRN IV PAIN Last administered on 02/09/19at 23:06; Start 02/09/19 at 12:15 Tramadol HCl (Ultram) 100 mg PRN Q6HRS PRN PO PAIN Last administered on 02/11/19at 06:05; Start 02/09/19 at 14:00 Active Scripts Active Reported Tramadol Hcl 50 Mg Tablet 100 Mg PO PRN Q6HRS PRN Gabapentin (Gabapentin) 300 Mg Capsule 300 Mg PO TID Allergies Allergies: Coded Allergies: No Known Drug Allergies (Unverified , 02/08/19) Vitals VITALS Vital Signs Date Time Temp Pulse Resp B/P (MAP) Pulse Ox O2 Delivery O2 Flow Rate FiO2 02/11/19 08:11 Room Air 02/11/19 07:00 98.4 85 16 138/79 (98) 91 98.4 Labs Labs Laboratory Tests Test 02/09/19 16:10 02/10/19 03:20 02/10/19 09:30 Tumor Marker Alpha Fetoprotein 34.3 ng/mL (0.0-8.3) Hepatitis A IgM Antibody Nonreactive (Nonreactive) Hepatitis B Surface Antigen Nonreactive (Nonreactive) Hepatitis B Core IgM Antibody Nonreactive (Nonreactive) Hepatitis C IgG Antibody Reactive (Nonreactive) White Blood Count 7.1 x10^3/uL (4.0-11.0) Red Blood Count 3.90 x10^6/uL (4.30-5.70) Hemoglobin 12.6 g/dL (13.0-17.5) Hematocrit 36.8 % (39.0-53.0) Mean Corpuscular Volume 94 fL (79-100) Mean Corpuscular Hemoglobin 32 pg (25-35) Mean Corpuscular Hemoglobin Concent 34 g/dL (31-37) Red Cell Distribution Width 16.0 % (11.5-14.5) Platelet Count 194 x10^3/uL (140-400) Sodium Level 131 mmol/L (136-145) Potassium Level 4.3 mmol/L (3.5-5.1) Chloride Level 96 mmol/L (98-107) Carbon Dioxide Level 27 mmol/L (21-32) Anion Gap 8 (6-14) Blood Urea Nitrogen 13 mg/dL (8-26) Creatinine 0.9 mg/dL (0.7-1.3) Estimated GFR (Cockcroft-Gault) 84.2 BUN/Creatinine Ratio 14 (6-20) Glucose Level 83 mg/dL (70-99) Calcium Level 9.6 mg/dL (8.5-10.1) Total Bilirubin 1.5 mg/dL (0.2-1.0) Aspartate Amino Transf (AST/SGOT) 107 U/L (15-37) Alanine Aminotransferase (ALT/SGPT) 33 U/L (16-63) Alkaline Phosphatase 282 U/L (46-116) Total Protein 8.6 g/dL (6.4-8.2) Albumin 1.9 g/dL (3.4-5.0) Albumin/Globulin Ratio 0.3 (1.0-1.7) Body Fluid Source Ascites Body Fluid Color Straw Body Fluid Clarity Clear Body Fluid Nucleated Cells 215 /cmm (Not Established) Body Fluid Mononuclear WBCs (%) 79 % Body Fluid Polymorphonuclear Cells 3 % Body Fluid Total RBCs Counted 30 /cmm (Not Established) Body Fluid Other Cells (%) 18 % EDWARD UGARTE MD Feb 11, 2019 09:49
[2019-02-11 12:17] LABS: CEA 3.7 ng/mL (0.0-4.7)
[2019-02-11] MEDS ORDERED: IV RINGERS,LACTATED 1000ML 1,000 ML IV SCH (15:29)
[2019-02-11] MEDS ORDERED: MIDAZOLAM HCL/PF 2 MG/2 ML VIAL. IV PRN (15:30)
[2019-02-11] MEDS ORDERED: LIDOCAINE 1% PF 2 ML VIAL. ID PRN (15:30)
[2019-02-11] MEDS ORDERED: fentaNYL PF VIAL 100 MCG/2 ML VIAL IV PRN ×2 (15:30)
[2019-02-11] MEDS ORDERED: MIDAZOLAM HCL/PF 5 MG/5 ML VIAL. ONE (15:41)
[2019-02-11] MEDS ORDERED: fentaNYL PF VIAL 100 MCG/2 ML VIAL ONE (15:41)
[2019-02-11] MEDS ORDERED: MIDAZOLAM HCL/PF 5 MG/5 ML VIAL. IV ONE ×3 (16:41→16:45)
[2019-02-11] MEDS ORDERED: fentaNYL PF VIAL 100 MCG/2 ML VIAL IV ONE ×2 (16:42→16:48)
--- NOTE | 2019-02-11 16:53 | PDOC4 ---
PROCEDURE Procedure EGD to assess portal hypertension and varices Sedation- moderated Versed 4 mg , Fentanyl 50 mcg Findings: distal esophagitis Mild grade I varices- small Mild gastritis suggestive of protal gastropathy- no ulcers or erosions and no bleeding Normal duodenum Plan- continue present plans based on these findings of very mild varices, low risk for anti- coagulation for PVT as proposed by Hem-onc. Will defer to them on treatment options and plans MELANIA MIRELES MD Feb 11, 2019 16:53
--- NOTE | 2019-02-11 17:06 | PATHOLOGY ---
Note [facility] Accession Number: [id number] TESTS RESULT FLAG UNITS REF RANGE LAB Clinician Provided Cytology Information No. of containers..01 Other (Miscellaneous) Source: ASCITES DIAGNOSIS: 02 ASCITES NEGATIVE FOR MALIGNANT CELLS. FOCALLY REACTIVE MESOTHELIAL CELLS AND INFLAMMATORY CELLS PRESENT. THIS INTERPRETATION INCLUDES EVALUATION OF A CELL BLOCK. Signed out by: 02 Mario Wasserman MD, Pathologist NPI- [id number] Performed by: Yolanda Beverly, [employer] Car[employer] Operations Inspector ([facility]) Gross description: 01 33ML, YELLOW, CLOUDY /LCS FLAG LEGEND: L-Low Normal,H-High Normal,LL-Alert Low,HH-Alert High <-Panic Low,>-Panic High,A-Abnormal,AA-Critical Abnormal Performed at: [address] [place] [address] Darwin Perez MD, 02 [facility] [address] [place] [address] Mario Wasserman MD, Specimen Comment: A courtesy copy of this report has been sent to Specimen Comment: [phone], , . Specimen Comment: Report sent to ,DR DEAL / DR JOSE Performed at: [address], [place], [place] [id number] MD Darwin Perez MD Phone: [phone]
[2019-02-11] MEDS: APIXABAN 5 MG TABLET. PO SCH (20:53)
[2019-02-12 03:59] VITALS: BP 151/79
[2019-02-12 07:00] VITALS: BP 152/82
[2019-02-12] MEDS: GABAPENTIN 300 MG CAPSULE. PO SCH (08:34)
[2019-02-12] MEDS: APIXABAN 5 MG TABLET. PO SCH (08:34)
[2019-02-12] MEDS: traMADol 50 MG TABLET PO PRN (08:37)
[2019-02-12 11:00] VITALS: BP 146/85
[2019-02-12] MEDS ORDERED: APIX5TAB PO (11:51)
--- NOTE | 2019-02-12 11:57 | PDOC ---
G I PROGRESS NOTE Subjective No complaints. Says on blood thinner. Abdomen "about the same". Physical Exam Lungs clear. RRR Abdomen round with some ascites, not tense. Not tender. Review of Relevant I have reviewed the following items alena (where applicable) has been applied. Labs Microbiology 02/10/19 Anaerobic/Aerobic Culture, Resulted Pending 02/10/19 Anaerobic Culture Result 1 (EUGENIO), Resulted Pending 02/10/19 Aerobic Culture, Resulted Pending 02/10/19 Aerobic Culture Result 1 (EUGENIO), Resulted Pending 02/10/19 Gram Stain - Final, Resulted 02/10/19 Gram Stain Result 1 (EUGENIO) - Final, Resulted 02/10/19 Gram Stain Result 2 (EUGENIO) - Final, Resulted Cytology on ascites negative. HCV RNA pending. Medications Current Medications Gabapentin (Neurontin) 300 mg TID PO Last administered on 02/12/19at 08:34; Start 02/08/19 at 21:00 Tramadol HCl (Ultram) 50 mg PRN DAILY PRN PO PAIN Last administered on 02/08/19at 23:03; Start 02/08/19 at 20:45; Stop 02/09/19 at 13:55; Status DC Iohexol (Omnipaque 240 Mg/ml) 30 ml 1X ONCE PO Last administered on 02/09/19at 10:45; Start 02/09/19 at 10:45; Stop 02/09/19 at 10:46; Status DC Iohexol (Omnipaque 300 Mg/ml) 75 ml 1X ONCE IV Last administered on 02/09/19at 10:45; Start 02/09/19 at 10:45; Stop 02/09/19 at 10:46; Status DC Info (CONTRAST GIVEN -- Rx MONITORING) 1 each PRN DAILY PRN MC SEE COMMENTS; Start 02/09/19 at 10:45; Stop 02/11/19 at 10:44; Status DC Morphine Sulfate (Morphine Sulfate) 2 mg PRN Q2HR PRN IV PAIN Last administered on 02/09/19at 23:06; Start 02/09/19 at 12:15 Tramadol HCl (Ultram) 100 mg PRN Q6HRS PRN PO PAIN Last administered on 02/12/19at 08:37; Start 02/09/19 at 14:00 Midazolam HCl (Versed) 2 mg PRN 1X PRN IV PRIOR TO PROCEDURE; Start 02/11/19 at 15:30; Stop 02/12/19 at 15:29 Fentanyl Citrate (Fentanyl 2ml Vial) 25 mcg PRN Q5MIN PRN IV X 2 DOSES FOR PAIN; Start 02/11/19 at 15:30; Stop 02/12/19 at 15:29 Fentanyl Citrate (Fentanyl 2ml Vial) 50 mcg PRN Q5MIN PRN IV X 2 DOSES FOR PAIN; Start 02/11/19 at 15:30; Stop 02/12/19 at 15:29 Ringer's Solution 1,000 ml @ 125 mls/hr Q8H IV Last administered on 02/11/19at 15:32; Start 02/11/19 at 15:29; Stop 02/11/19 at 16:59; Status DC Lidocaine HCl (Xylocaine-Mpf 1% 2ml Vial) 2 ml 1X PRN PRN ID IV START; Start 02/11/19 at 15:30; Stop 02/12/19 at 15:29 Midazolam HCl (Versed) 5 mg STK-MED ONCE .ROUTE ; Start 02/11/19 at 15:41; Stop 02/11/19 at 15:42; Status DC Fentanyl Citrate (Fentanyl 2ml Vial) 100 mcg STK-MED ONCE .ROUTE ; Start 02/11 at 15:41; Stop 02/11/19 at 15:42; Status DC Midazolam HCl (Versed) 5 mg STK-MED ONCE IV Last administered on 02/11/19at 16: 41; Start 02/11/19 at 16:41; Stop 02/11/19 at 16:42; Status DC Fentanyl Citrate (Fentanyl 2ml Vial) 100 mcg STK-MED ONCE IV Last administered on 02/11/19at 16:42; Start 02/11/19 at 16:42; Stop 02/11/19 at 16:46; Status DC Midazolam HCl (Versed) 5 mg STK-MED ONCE IV Last administered on 02/11/19at 16:43; Start 02/11/19 at 16:43; Stop 02/11/19 at 16:46; Status DC Midazolam HCl (Versed) 5 mg STK-MED ONCE IV Last administered on 02/11/19at 16:45; Start 02/11/19 at 16:45; Stop 02/11/19 at 16:46; Status DC Fentanyl Citrate (Fentanyl 2ml Vial) 100 mcg STK-MED ONCE IV Last administered on 02/11/19at 16:48; Start 02/11/19 at 16:48; Stop 02/11/19 at 16:49; Status DC Apixaban (Eliquis) 5 mg BID PO Last administered on 02/12/19at 08:34; Start 02/11/19 at 21:00 Active Scripts Active Reported Tramadol Hcl 50 Mg Tablet 100 Mg PO PRN Q6HRS PRN Gabapentin (Gabapentin) 300 Mg Capsule 300 Mg PO TID Vitals/I & O Vital Sign - Last 24 Hours 02/11/19 02/11/19 02/11/19 02/11/19 15:00 15:19 15:22 16:41 Temp 98.4 97.3 98.4 97.3 Pulse 87 93 96 Resp 16 16 20 B/P (MAP) 143/81 (101) 153/92 Pulse Ox 93 94 97 O2 Delivery Room Air Room Air Room Air Nasal Cannula O2 Flow Rate 2 02/11/19 02/11/19 02/11/19 02/11/19 16:46 16:52 17:02 17:24 Temp 98.5 98.5 Pulse 88 83 86 Resp B/P (MAP) 136/80 120/68 Pulse Ox 98 97 94 O2 Delivery Nasal Cannula Nasal Cannula Room Air Room Air O2 Flow Rate 2 2 02/11/19 02/11/19 02/11/19 02/11/19 17:27 19:59 20:00 23:59 Temp 98.1 98.6 98.1 98.6 Pulse 67 88 95 Resp B/P (MAP) 132/78 (96) 141/81 (101) 149/78 (101) Pulse Ox 99 94 92 O2 Delivery Room Air Room Air Room Air Room Air 02/12/19 02/12/19 02/12/19 02/12/19 03:59 07:00 08:37 09:37 Temp 100.2 98.6 100.2 98.6 Pulse 97 101 Resp 14 14 B/P (MAP) 151/79 (103) 152/82 (105) Pulse Ox 93 92 92 O2 Delivery Room Air Room Air Room Air Room Air O2 Flow Rate 2.0 02/12/19 11:00 Temp 98.6 98.6 Pulse 101 Resp 17 B/P (MAP) 146/85 (105) Pulse Ox 90 O2 Delivery Room Air Intake and Output 02/11/19 02/11/19 02/12/19 15:00 23:00 07:00 Intake Total 240 ml 340 ml 680 ml Output Total 0 ml Balance 240 ml 340 ml 680 ml Assessment Portal vein thrombosis, acute? Subacute? Cirrhosis. Probably malignant hepatic tumor--primary?, secondary? Multiple positive tumor markers. Plan of Care Note Continue as now. Await pending data. Liver biopsy? MADELINE GRACIA MD Feb 12, 2019 11:57
[2019-02-12] MEDS ORDERED: ANTI-COAG MONITOR BY PHARMACY. MC PRN (12:45)
[2019-02-12 13:15] LABS: HCV ULTRA QUANT PCR 353000 IU/mL (.)
--- NOTE | 2019-02-12 14:10 | DS ---
DATE OF DISCHARGE: 02/12/2019 PRIMARY DIAGNOSIS: Abdominal pain. ADDITIONAL DIAGNOSES: Cirrhosis of the liver, hepatitis C by testing, ascites--symptomatic, low density lesions in both lobes of the liver with a question of hepatocellular carcinoma versus metastatic disease, splenomegaly, portal vein thrombosis. CHIEF COMPLAINT AND HISTORY OF PRESENT ILLNESS: This is a 68-year-old white male is well known to me from followup in the office. The patient presented with a week's worth of abdominal distention and pain to the office on the day of admission. He was diffusely tender with some rebound and admitted, was felt to be probably an acute abdomen. SUMMARY OF STAY: The patient was admitted. CT scanning showed hepatic cirrhosis with a low density lesions in both lobes of the liver, raising the possibility of a hepatocellular carcinoma or metastatic disease, also showed splenomegaly and portal vein thrombosis, also showed extensive mesenteric congestion and edema with a large volume of ascites and probable esophageal varices with small bilateral pleural effusions with bibasilar atelectasis. Ultrasound shows an enlarged thrombus in main portal vein. He did undergo paracentesis on the with final cytology being negative for malignant cells and the patient is likely going to need liver biopsy as an outpatient. He was symptomatically much better after the paracentesis. Hematology and GI saw him in consultation and only change in medications going home is that of Eliquis 5 mg b.i.d. My suspicion is he will need ongoing paracentesis at this time and we may need to put some sort of a catheter in if this becomes too frequent. DISPOSITION: The patient is discharged to home, regular diet, activity as tolerated. Office, Thursday, Thursday. DISCHARGE MEDICATIONS: That of his regular home medications plus Eliquis 5 mg b.i.d. TOYIN LUO MD DR: PHIL/sylvia JOB#: [id number] / [id number]
--- NOTE | 2019-02-12 14:27 | NUR ---
Discharge Note: SHANNA TIERNEY Discharge instructions and discharge home medications reviewed with Patient and a copy given. All questions have been answered and understanding verbalized. The following instructions and handouts were given: Discharge Instructions, Follow Up Care and Apt, Prescription Discontinued lines and drains: PIV removed, Catheter intact. Patient discharged to Home with Self-Care via Private Vehicle
--- NOTE | 2019-02-12 15:08 | PN ---
DATE: 02/11/2019 LOCATION: Room 510. SUBJECTIVE: The patient is awake, alert, feels much better, after the paracentesis was able to sleep last night and able to eat better this morning. OBJECTIVE: VITAL SIGNS: Stable. He is afebrile. Three liters of ascitic fluid was removed, with studies pending. There is no answer per GI from the ascitic fluid as far as what we are dealing with, they are suggesting a liver biopsy. He would like to be home for Father's Day, and I told him to discuss this with GI as we can certainly do some of this as an outpatient at this point in time and told him I expect to fluid to return until we were able to deal with underlying etiology. CHEST: Clear. HEART: Regular. ABDOMEN: Much softer. ASSESSMENT: 1. Ascites with liver masses and cirrhosis and hepatitis C, likely hepatocellular carcinoma, but ____ diagnosis today. 2. Portal vein thrombosis. PLAN: Continue present care with GI decisions as far as further workup. TOYIN LUO MD DR: PHIL/sylvia JOB#: [id number] / [id number]
== END 2019-02-12 13:30 | disposition home or self-care (01) | DRG 432 ==
LOC: 5 NORTH 15:07
PROVIDERS: ADMIT Family Medicine; ATTEND Family Medicine
PROC: 0W9G3ZZ Drainage of Peritoneal Cavity, Percutaneous Approach (ICD-10-PCS; principal; 2019-02-10)
PROC: 0DJ08ZZ Inspection of Upper Intestinal Tract, Via Natural or Artificial Opening Endoscopic (ICD-10-PCS; 2019-02-11)
DX: K74.60 Unspecified cirrhosis of liver (principal); I81 Portal vein thrombosis; I85.10 Secondary esophageal varices without bleeding; J98.11 Atelectasis; E87.1 Hypo-osmolality and hyponatremia; R18.8 Other ascites; J90 Pleural effusion, not elsewhere classified; K20.9 Esophagitis, unspecified; K29.70 Gastritis, unspecified, without bleeding; D64.9 Anemia, unspecified; F10.10 Alcohol abuse, uncomplicated; F17.210 Nicotine dependence, cigarettes, uncomplicated; F32.9 Major depressive disorder, single episode, unspecified; E88.09 Other disorders of plasma-protein metabolism, not elsewhere classified; G89.29 Other chronic pain; Z60.2 Problems related to living alone; G62.9 Polyneuropathy, unspecified; M19.90 Unspecified osteoarthritis, unspecified site; Z82.49 Family history of ischemic heart disease and other diseases of the circulatory system
CPT/HCPCS: 36415; 43235; 49083; 74177; 80053; 82105; 82150; 82378; 82945; 83615; 84157; 85025; 85027; 85610; 86301; 86705; 86709; 86803; 87071; 87075; 87340; 87521; 88112; 88305; 89050; 93976; J2250; J2270; J3010; J7120; Q9966; Q9967

== ENCOUNTER 2019-02-23 08:23 | Outpatient (CLI) | payer MEDICARE ==
[2019-02-23] VITALS (9 sets, daily range): BP systolic 110–149; BP diastolic 67–82
[~2019-02-23] VITALS: Ht 185.4 cm; Wt 77.1 kg
[~2019-02-23 08:23] MED LIST: APIX5TAB PO; GABA300C18 PO; TRAM50TA PO
[2019-02-23] MEDS ORDERED: GADOTERATE 7.5 MMOL/15ML VIAL. IVP ONE (09:00)
[2019-02-23] MEDS ORDERED: GABA300C18 PO (10:10)
[2019-02-23 10:27] LABS: BASO % 0 % (0-3); EOS # 0.1 x10^3/uL (0.0-0.7); EOS % 1 % (0-3); HEMOGLOBIN 12.7 g/dL (13.0-17.5); LYMPH # 1.1 x10^3/uL (1.0-4.8); LYMPH % 14 % (24-48); MEAN CORPUSCULAR HEMOGLOBIN 32 pg (25-35); MEAN CORPUSCULAR HGB CONC 34 g/dL (31-37); MEAN CORPUSCULAR VOLUME 95 fL (79-100); MONO # 0.8 x10^3/uL (0.0-1.1); MONO % 10 % (0-9); NEUT # 6.1 x10^3uL (1.8-7.7); NEUT % 75 % (31-73); PLATELET COUNT 201 x10^3/uL (140-400); RED BLOOD COUNT 3.92 x10^6/uL (4.30-5.70); WHITE BLOOD COUNT 8.1 x10^3/uL (4.0-11.0)
[2019-02-23 10:37] LABS: PROTHROMBIN TIME PATIENT 16.2 SEC (11.7-14.0)
[2019-02-23] MEDS ORDERED: LIDOCAINE 1%/EPI 1:100,000 20 ML VIAL. ONE (10:47)
[2019-02-23 10:50] LABS: CALCIUM 9.4 mg/dL (8.5-10.1); GFR 74.5; POTASSIUM 4.7 mmol/L (3.5-5.1)
[2019-02-23] MEDS ORDERED: fentaNYL PF VIAL 100 MCG/2 ML VIAL ONE (11:07)
[2019-02-23] MEDS ORDERED: MIDAZOLAM HCL/PF 5 MG/5 ML VIAL. ONE (11:07)
[2019-02-23] MEDS ORDERED: ALBUMIN HUMAN 25% 100 ML IV ONE ×2 (12:38→13:00)
--- NOTE | 2019-02-23 12:52 | RAD ---
Ultrasound-guided paracentesis 02/23/2019 12:48 PM Procedure: The risks and benefits of the procedure were discussed the patient. Informed consent was obtained. A timeout procedure was performed. Sonographic evaluation of the abdomen was performed demonstrating ascites . The left lower quadrant was prepped and draped using maximum sterile barrier technique. 1% lidocaine without epinephrine was administered for local anesthesia. Real-time ultrasonographic guidance was used in passing a 5 Armenian Yueh catheter into the fluid collection. 5 L of serous ascites was removed. The catheter was removed and pressure held to achieve hemostasis. A sterile dressing was applied. Impression: Successful ultrasound-guided paracentesis
--- NOTE | 2019-02-23 13:17 | RAD ---
EXAM: MRI ABDOMEN WITH AND WITHOUT CONTRAST. HISTORY: Liver mass, abdominal distention. TECHNIQUE: MRI of the abdomen was performed before and after the intravenous administration of 15 mL Dotarem. COMPARISON: 02/09/2019. FINDINGS: Liver: Extensive mild T2 hyperintensity throughout the right hepatic lobe is consistent with a large hepatocellular carcinoma. Multiple additional small nodules scattered throughout the left lobe are consistent with multifocal disease. The main mass measures 14 cm in greatest dimension. The largest left lobe nodule measures 4.5 cm. There is enhancing tumor thrombus throughout the right portal vein, extending into the left portal vein and main portal vein. Biliary tree: The gallbladder wall thickening and irregularity may reflect liver disease, prominent pericholecystic veins and ascites. No clear stones are identified. The common duct is mildly dilated to 1 cm without a clear distal obstructing lesion. There are no suspicious pancreatic parenchymal lesions. The pancreatic duct is not dilated. Other findings: The spleen is enlarged at 16 cm. There is a large amount of ascites. There are small bilateral pleural effusions. A cyst at the left renal lower pole measures 2.5 cm. The adrenal glands are unremarkable. IMPRESSION: 1. Large right hepatic lobe mass with multiple satellite nodules throughout the left hepatic lobe and a bulky tumor thrombus. This is consistent with extensive multifocal hepatocellular carcinoma. 2. Large ascites. Moderate splenomegaly. 3. Gallbladder wall thickening most likely reflects liver disease. The common duct is mildly dilated without cause for distal obstruction. Electronically signed by: Mehrdad Freitas MD (02/23/2019 1:14 PM) [facility]
--- NOTE | 2019-02-23 13:49 | NUR ---
Discharge Note: FARHEEN TIERNEY Discharge instructions and discharge home medications reviewed with patient, son and daughter and a copy given. All questions have been answered and understanding verbalized. Patient tolerated juice with no difficulties, patient did not want to eat any food. The following instructions and handouts were given: Paracentesis. Discontinued lines and drains: PIV left AC, dressing clean dry intact. Patient discharged to home with son and daughter via ambulated [facility].
--- NOTE | 2019-02-24 16:06 | PATHOLOGY ---
Note [facility] Accession Number: [id number] TESTS RESULT FLAG UNITS REF RANGE LAB Clinician Provided Cytology Information No. of containers..01 Other (Miscellaneous) Source: ASCITES FLUID DIAGNOSIS: 02 ASCITES FLUID NEGATIVE FOR MALIGNANT CELLS. FOCALLY REACTIVE MESOTHELIAL CELLS AND FEW INFLAMMATORY CELLS PRESENT. THIS INTERPRETATION INCLUDES EVALUATION OF A CELL BLOCK. Signed out by: 02 Mario Wasserman MD, Pathologist NPI- [id number] Performed by: Yolanda Beverly, Oncology Account Specialist ([facility]) Gross description: 01 30ML, YELLOW, CLEAR /LCS FLAG LEGEND: L-Low Normal,H-High Normal,LL-Alert Low,HH-Alert High <-Panic Low,>-Panic High,A-Abnormal,AA-Critical Abnormal Performed at: [address] [place] [address] Darwin Perez MD, 02 [facility] [address] [place] [address] Mario Wasserman MD, Specimen Comment: A duplicate report has been generated due to demographic updates. Performed at: [address], [place], [place] [id number] MD Darwin Perez MD Phone: [phone]
== END 2019-02-23 13:40 | disposition home or self-care (01) ==
LOC: MRI 08:23
PROVIDERS: ATTEND Family Medicine
DX: R18.8 Other ascites (principal); E53.8 Deficiency of other specified B group vitamins; G47.00 Insomnia, unspecified; F32.9 Major depressive disorder, single episode, unspecified
CPT/HCPCS: 36415; 49083; 74183; 80048; 85025; 85610; 88112; 88305; A9575; P9046

== ENCOUNTER → 2019-03-02 | Outpatient (CLI) | payer MEDICARE ==
[2019-02-23 13:03] VITALS: BP 137/68
[~2019-03-02] MED LIST changes: +CONTRAST GIVEN. MC PRN; +IOHEXOL 300 MG/ML 100ML VIAL. IV ONE
--- NOTE | 2019-03-02 12:28 | RAD ---
Examination: CT CHEST W/CONTRAST History: Hepatocellular carcinoma Comparison/Correlation: CT abdomen pelvis with oral contrast 02/09/2019 Findings: Axial images of chest were obtained following IV contrast. Sagittal and coronal reformatted images were provided. Extensive centrilobular emphysematous involvement of the lung dickson noted. Small bilateral pleural effusions. Adjacent atelectasis at the costophrenic sulci greater on the right. Bronchial wall thickening involving the right lower lobe at the posterior basilar aspect is evident along with the suggestion of mild mucous plugging. No pneumothorax. No focal pulmonary nodule or mass lesion. Significant proximal left anterior descending coronary arterial calcification is present. No pericardial effusion. No enlarged thoracic lymph nodes. Large amount of upper abdominal ascites noted. Nodular contour of the liver compatible with cirrhosis or other fibrotic process is identified. Multiple low-attenuation lesions involving the liver are present corresponding to findings on recent CT abdomen and pelvis examination. Liver is not fully included for purposes of this exam. Impression: Pleural effusions. Adjacent atelectasis. Right lower lobe basilar findings of bronchitis and suggestion of mucus plugging. Slight progression of findings since prior CT abdomen and pelvis with contrast exam dated 09/11/2018. Centrilobular emphysema. Ascites. Hepatic masses. Hepatic cirrhosis or other fibrotic process. PQRS Compliance Statement: One or more of the following individualized dose reduction techniques were utilized for this examination: 1. Automated exposure control 2. Adjustment of the mA and/or kV according to patient size 3. Use of iterative reconstruction technique Electronically signed by: Ramakrishna Reddy MD (03/02/2019 12:25 PM) [facility]
--- NOTE | 2019-03-02 14:46 | RAD ---
Examination: BONE SCAN WHOLE BODY History: Hepatocellular carcinoma staging Comparison/Correlation: CT chest with contrast 03/02/2019, MRI abdomen without and with contrast 02/23/2019, CT abdomen and pelvis with contrast 02/09/2019 Findings: 2520 mCi technetium 99m MDP was intravenously administered for purposes of total-body bone scintigraphy. Small focus of nonspecific uptake involving the left lateral abdominal wall soft tissues is present. Uptake of radiotracer involving the bony structures is unremarkable with no findings to suggest osteoblastic or osteolytic metastatic disease. Kidneys and urinary bladder visualized. Impression: No evidence of bony metastatic disease. Electronically signed by: Ramakrishna Reddy MD (03/02/2019 2:43 PM) [facility]
== END | disposition home or self-care (01) ==
LOC: NM 07:44
PROVIDERS: ATTEND Internal Medicine Hematology & Oncology
DX: J43.2 Centrilobular emphysema (principal); J90 Pleural effusion, not elsewhere classified; J98.11 Atelectasis; J92.9 Pleural plaque without asbestos; I25.10 Atherosclerotic heart disease of native coronary artery without angina pectoris; R18.8 Other ascites; R16.0 Hepatomegaly, not elsewhere classified; Z85.05 Personal history of malignant neoplasm of liver
CPT/HCPCS: 71260; 78306; A9503; Q9967

== ENCOUNTER 2019-03-08 09:44 | Outpatient (CLI) | payer MEDICARE ==
[~2019-03-08] VITALS: Ht 185.4 cm; Wt 79.4 kg
[2019-03-08] VITALS (9 sets, daily range): BP systolic 124–150; BP diastolic 67–93
[~2019-03-08 09:44] MED LIST changes: -CONTRAST GIVEN. MC PRN; -IOHEXOL 300 MG/ML 100ML VIAL. IV ONE
[2019-03-08] MEDS ORDERED: ALBUMIN HUMAN 25% 100 ML IV ONE ×4 (11:24→11:45)
--- NOTE | 2019-03-08 12:45 | NUR ---
Discharge Note: FARHEEN TIERNEY Discharge instructions and discharge home medications reviewed with Patient and a copy given. All questions have been answered and understanding verbalized. The following instructions and handouts were given: Paracentesis Discontinued lines and drains: Lt wrist 22g IV discontinued with tip intact on removal. Patient discharged to home with via private car. Pt leaves at this time in no apparent distress.
--- NOTE | 2019-03-08 14:06 | RAD ---
Ultrasound-guided paracentesis 03/08/2019 2:01 PM Procedure: The risks and benefits of the procedure were discussed the patient. Informed consent was obtained. A timeout procedure was performed. Sonographic evaluation of the abdomen was performed demonstrating ascites . The right lower quadrant was prepped and draped using maximum sterile barrier technique. 1% lidocaine without epinephrine was administered for local anesthesia. Real-time ultrasonographic guidance was used in passing a 5 Lithuanian Yueh catheter into the fluid collection. 7 L of serous ascites was removed. The catheter was removed and pressure held to achieve hemostasis. A sterile dressing was applied. Impression: Successful ultrasound-guided paracentesis
== END 2019-03-08 12:45 | disposition home or self-care (01) ==
LOC: INTRAD 09:44
PROVIDERS: ATTEND Internal Medicine Hematology & Oncology
DX: R18.8 Other ascites (principal)
CPT/HCPCS: 49083; P9046

== ENCOUNTER 2019-03-18 06:56 | Outpatient (CLI) | payer MEDICARE ==
[2019-03-18] VITALS (8 sets, daily range): BP systolic 121–146; BP diastolic 65–91
[~2019-03-18] VITALS: Ht 185.4 cm; Wt 77.1 kg
[2019-03-18] MEDS ORDERED: ALBUMIN HUMAN 25% 100 ML IV ONE ×2 (08:29→08:45)
--- NOTE | 2019-03-18 09:25 | NUR ---
Discharge Note: FARHEEN TIERNEY Discharge instructions and discharge home medications reviewed with Patient and a copy given. All questions have been answered and understanding verbalized. The following instructions and handouts were given: Post Paracent Discontinued lines and drains: Right AC IV tip intact. Patient discharged to home with self via car.
--- NOTE | 2019-03-18 11:42 | RAD ---
Ultrasound-guided paracentesis 03/18/2019 11:38 AM Procedure: The risks and benefits of the procedure were discussed the patient. Informed consent was obtained. A timeout procedure was performed. Sonographic evaluation of the abdomen was performed demonstrating ascites . The right lower quadrant was prepped and draped using maximum sterile barrier technique. 1% lidocaine without epinephrine was administered for local anesthesia. Real-time ultrasonographic guidance was used in passing a 5 [place] Yueh catheter into the fluid collection. 7 L of serous ascites was removed. The catheter was removed and pressure held to achieve hemostasis. A sterile dressing was applied. Impression: Successful ultrasound-guided paracentesis
== END 2019-03-18 09:25 | disposition home or self-care (01) ==
LOC: INTRAD 06:56
PROVIDERS: ATTEND Internal Medicine Hematology & Oncology
DX: R18.8 Other ascites (principal)
CPT/HCPCS: 49083; P9046

== ENCOUNTER 2019-03-29 06:58 | Outpatient (CLI) | payer MEDICARE ==
[2019-03-29] VITALS (8 sets, daily range): BP systolic 111–140; BP diastolic 65–79
[~2019-03-29] VITALS: Ht 185.4 cm; Wt 74.8 kg
[2019-03-29 08:05] LABS: BASO % 0 % (0-3); EOS % 0 % (0-3); HEMATOCRIT 36.6 % (39.0-53.0); HEMOGLOBIN 12.3 g/dL (13.0-17.5); LYMPH % 9 % (24-48); MEAN CORPUSCULAR HEMOGLOBIN 33 pg (25-35); MEAN CORPUSCULAR HGB CONC 34 g/dL (31-37); MEAN CORPUSCULAR VOLUME 99 fL (79-100); MONO # 0.9 x10^3/uL (0.0-1.1); MONO % 8 % (0-9); NEUT # 8.7 x10^3/uL (1.8-7.7); NEUT % 82 % (31-73); PLATELET COUNT 232 x10^3/uL (140-400); RED BLOOD COUNT 3.69 x10^6/uL (4.30-5.70); RED CELL DISTRIBUTION WIDTH 17.2 % (11.5-14.5); WHITE BLOOD COUNT 10.6 x10^3/uL (4.0-11.0)
[2019-03-29 08:16] LABS: PROTHROMBIN TIME PATIENT 17.1 SEC (11.7-14.0)
[2019-03-29] MEDS ORDERED: MIDAZOLAM HCL/PF 2 MG/2 ML VIAL. ONE (08:53)
[2019-03-29] MEDS ORDERED: fentaNYL PF VIAL 100 MCG/2 ML VIAL ONE (08:53)
[2019-03-29] MEDS ORDERED: LIDOCAINE 1%/EPI 1:100,000 20 ML VIAL. ONE (09:07)
[2019-03-29] MEDS ORDERED: LIDOCAINE 1%/EPI 1:100,000 20 ML VIAL. IJ ONE (09:30)
[2019-03-29] MEDS ORDERED: MIDAZOLAM HCL/PF 2 MG/2 ML VIAL. IV ONE (09:30)
[2019-03-29] MEDS ORDERED: fentaNYL PF VIAL 100 MCG/2 ML VIAL IV ONE (09:30)
[2019-03-29] MEDS ORDERED: ALBUMIN HUMAN 25% 100 ML IV ONE ×4 (09:55→10:00)
--- NOTE | 2019-03-29 11:53 | NUR ---
Discharge Note: FARHEEN TIERNEY Discharge instructions and discharge home medications reviewed with patient and daughter and a copy given. All questions have been answered and understanding verbalized. The following instructions and handouts were given: Moderate sedation, abdominal drain placement and infection control. Discontinued lines and drains: right wrist/hand PIV, dressing clean dry intact. Patient discharged to home with daughter via wheelchair to private vehicle.
--- NOTE | 2019-03-29 16:10 | RAD ---
03/29/2019 1:04 PM Procedure: Tunneled peritoneal drainage catheter placement Indication: Recurrent malignant ascites Consent: The procedure was explained in its entirety to the patient or the patients designated national account representative by a member of the treatment team, including a discussion of the risks, benefits and commonly accepted alternatives to the procedure, as well as the expected consequences of no therapy whatsoever. Discussion of the risks included, but was not limited to, those that are most frequent and those that are rare but possibly severe or life-threatening, as well as the possibility of unforeseen complications. All elements of maximal sterile barrier technique including the use of a cap, mask, sterile gown, sterile gloves, large sterile sheet, appropriate hand hygiene, and 2% chlorhexidine for cutaneous antisepsis (or acceptable alternative antiseptic per current guidelines) were followed for this procedure. The right lower quadrant was prepped and draped using maximum sterile barrier technique. 1% lidocaine without epinephrine was administered for local anesthesia. Real-time ultrasonographic guidance was used in passing a 5 Liberian sheathed needle into the peritoneum. Fluid was aspirated. A cuffed catheter was advanced from a small dermatotomy several cm anterior to the access site, to the access site. It was then advanced through a peel away sheath into the peritoneum . Serous ascites was removed. A sterile dressing was applied. Impression: Successful ultrasound-guided placement of a tunneled peritoneal drain. Sedation The procedure was performed under conscious sedation, including continuous cardiopulmonary monitoring via a dedicated sedation nurse. Face to face sedation time : 20 minutes
[2019-03-31 14:11] LABS: HCV ULTRA QUANT PCR 260000 IU/mL (.)
[2019-04-10] MEDS ORDERED: HYDR2VIA2 IV (12:38)
[2019-04-10] MEDS ORDERED: LORA2VIA IV (12:38)
[2019-04-10] MEDS ORDERED: PROC10VI IV (12:38)
== END 2019-03-29 12:00 | disposition home or self-care (01) ==
LOC: INTRAD 06:58
PROVIDERS: ATTEND Internal Medicine Hematology & Oncology
DX: Z45.2 Encounter for adjustment and management of vascular access device (principal); R18.0 Malignant ascites; Z79.899 Other long term (current) drug therapy; Z79.01 Long term (current) use of anticoagulants
CPT/HCPCS: 36415; 43245; 49418; 85025; 85610; 85730; 86706; 87340; 87521; 99152; C1729; J0690; J2250; J3010; J3490; P9046; 76942; 99153

== ENCOUNTER 2019-03-31 06:48 | Outpatient (CLI) | payer MEDICARE ==
[~2019-03-31] VITALS: Ht 185.4 cm; Wt 74.8 kg
[2019-03-31] VITALS (14 sets, daily range): BP systolic 104–137; BP diastolic 52–73
[2019-03-31] MEDS ORDERED: LIDOCAINE WITH 8.4% SOD BICARB 3 ML DISP.SYRIN. ONE (08:25)
--- NOTE | 2019-03-31 08:31 | NUR ---
Pt to IR lab for ultrasound guided biopsy. MD at bedside using ultrasound to assess peritoneal fluid level; Pleurex catheter used to drain existing fluid.
[2019-03-31] MEDS ORDERED: MIDAZOLAM HCL/PF 2 MG/2 ML VIAL. ONE (08:35)
[2019-03-31] MEDS ORDERED: fentaNYL PF VIAL 100 MCG/2 ML VIAL ONE (08:35)
[2019-03-31] MEDS ORDERED: GELATIN SPONGE SIZE 12-7MM SPONGE. ONE (08:47)
[2019-03-31] MEDS ORDERED: fentaNYL PF VIAL 100 MCG/2 ML VIAL IV ONE (09:00)
[2019-03-31] MEDS ORDERED: LIDOCAINE WITH 8.4% SOD BICARB 3 ML DISP.SYRIN. IJ ONE (09:00)
[2019-03-31] MEDS ORDERED: MIDAZOLAM HCL/PF 2 MG/2 ML VIAL. IV ONE (09:00)
--- NOTE | 2019-03-31 11:15 | NUR ---
Discharge Note: FARHEEN TIERNEY Discharge instructions and discharge home medications reviewed with Family Member and a copy given. All questions have been answered and understanding verbalized. Patient tolerated food and juice with no difficulties. The following instructions and handouts were given: Moderate sedation and Liver biopsy care. Discontinued lines and drains: PIV right AC, pressure held for 5 minutes, dressing clean dry intact. Patient discharged to home with daughter via wheelchair to private vehicle.
--- NOTE | 2019-03-31 15:21 | RAD ---
Ultrasound guided right liver biopsy 03/31/2019 3:14 PM Indication: 68-year-old male with diffuse hepatic nodularity, clinical findings suggestive of hepatocellular carcinoma. Consent: The procedure was explained in its entirety to the patient or the patients designated automobile sales representative by a member of the treatment team, including a discussion of the risks, benefits and commonly accepted alternatives to the procedure, as well as the expected consequences of no therapy whatsoever. Discussion of the risks included, but was not limited to, those that are most frequent and those that are rare but possibly severe or life-threatening, as well as the possibility of unforeseen complications. All elements of maximal sterile barrier technique including the use of a cap, mask, sterile gown, sterile gloves, large sterile sheet, appropriate hand hygiene, and 2% chlorhexidine for cutaneous antisepsis (or acceptable alternative antiseptic per current guidelines) were followed for this procedure. The patient has a history of ascites, which was completely evacuated via a pre-existing drainage catheter. Limited ultrasound evaluation demonstrates diffuse subtle diffuse heterogeneity throughout the inferior lateral right liver consistent with multifocal metastatic/neoplastic involvement is seen on comparison MRI exam from February 23, 2019. This region was targeted for biopsy. 1% lidocaine was administered for local anesthesia. Under direct ultrasound guidance a 17-gauge needle was advanced to the aforementioned region of the right liver. 2 18-gauge core biopsy samples were obtained and placed in formalin. Gelfoam embolization of the biopsy tract was performed as the needle was removed. Manual pressure was held. No immediate complications were identified on short-term follow-up ultrasound. Sterile dressings were applied. Sedation The procedure was performed under conscious sedation, including continuous cardiopulmonary monitoring via a dedicated sedation nurse. Face to face sedation time : 25 minutes Impression: Ultrasound-guided liver biopsy as described
--- NOTE | 2019-04-05 15:07 | PATHOLOGY ---
[facility] Accession Number: [id number] . 01 Material submitted: . liver - LIVER BIOPSY . 01 Clinical history: . Liver mass . 02 Diagnosis: Liver mass, CT-guided needle biopsy: - HEPATOCELLULAR CARCINOMA, MODERATELY DIFFERENTIATED. SEE COMMENT. . (JPM:mml; 04/04/2019) [facility]/04/05/2019 . 02 Comment: Sections of the liver mass CT-guided needle biopsy reveal a malignant epithelial neoplasm. The malignant cells have a solid nested and trabecular arrangement, and infiltrate a reactive desmoplastic stroma. The malignant cells have ample amounts of eosinophilic to focally clear cytoplasm. The malignant cells possess enlarged rounded to ovoid moderately pleomorphic hyperchromatic nuclei containing prominent nucleoli. There are mitotic figures present. There is focal tumor necrosis. The neoplasm shows no definitive glandular or squamous differentiation. Within the sclerotic stroma, there are scattered tubular structures consistent with bile ducts. There is no normal hepatic parenchyma present. . A panel of immunoperoxidase stains is obtained and yields the following results: . Cytokeratin LEYDA: Tumor cells positive Cytokeratin 7: Tumor cells negative; bile ducts positive Cytokeratin 20: Tumor cells negative Cytokeratin 19: Tumor cells negative; bile ducts positive Polyclonal CEA: Tumor cells positive having a membranous and focal canalicular pattern CD10: Tumor cells positive having a cytoplasmic and focal canalicular pattern Hepatocyte specific antigen: Tumor cells show a focal suggestion of weak positivity TTF-1: Tumor cells appear to show focal weak cytoplasmic positivity . The morphologic and immunophenotypic findings are supportive of the diagnosis of a moderately differentiated hepatocellular carcinoma. The case is also examined by Dr. Ambrocio, who has a specialty interest in hepatic pathology. She concurs with the diagnosis. The results are reported to Dr Ugarte at 12:05 PM on 04/05/19. (JPM:mml; 04/04/2019) . 02 Electronically signed: . Mario Wasserman MD, Pathologist NPI- [id number] . 01 Gross description: . The specimen is received in formalin, labeled "Chad Deras, liver biopsy" and consists of 2 delicate pink borrero needle cores measuring 0.5 cm and 1.2 cm in length and 0.1 cm each in diameter. They are entirely submitted in A1. (SDY; 03/31/2019) SYU/SYU . 02 Pathologist provided ICD-10: C22.9 . 02 CPT . 965109, N89116, [id number] Specimen Comment: A courtesy copy of this report has been sent to Specimen Comment: [phone], , . Specimen Comment: Report sent to , and Performed at: 01 [facility] [address], [place], [place] [id number] MD Darwin Perez MD Phone: [phone] Performed at: 02 [facility] [address], [place] [id number] MD Mario Wasserman MD Phone: [phone]
[2019-04-10] MEDS ORDERED: PROC10VI IV (12:38)
[2019-04-10] MEDS ORDERED: HYDR2VIA2 IV (12:38)
[2019-04-10] MEDS ORDERED: LORA2VIA IV (12:38)
== END 2019-03-31 11:20 | disposition home or self-care (01) ==
LOC: INTRAD 06:48
PROVIDERS: ATTEND Internal Medicine Hematology & Oncology
DX: C22.0 Liver cell carcinoma (principal)
CPT/HCPCS: 47000; 88307; 88341; 88342; 99152; 99153; J2250; J3010; 49083; 76942

== ENCOUNTER 2019-04-07 17:03 | Inpatient (IN) | payer MEDICARE ==
[~2019-04-07] VITALS: Ht 185.4 cm; Wt 70.0 kg
[2019-04-07] MEDS ORDERED: IV NORMAL SALINE 1000ML BAG 1,000 ML IV ONE ×2 (17:30→18:45)
--- NOTE | 2019-04-07 17:47 | PHYS DOC ---
Past Medical History Past Medical History: Cancer (liver), Hepatitis (hepatitis C) (ISABEL DAVIS APRN) Past Surgical History: Other (liver biopsy) (ISABEL DAVIS APRN) Smoking: Quit Less Than 1 Year Alcohol Use: None Drug Use: None (ISABEL DAVIS APRN) Adult General Chief Complaint Chief Complaint: WEAKNESS/GENERALIZED HPI HPI Patient is a 68 year old male, accompanied by his daughters, who presents to the emergency department for increased generalized weakness and frequent falls. Patient states he was diagnosed with hepatitis C and liver cancer approximately 6 weeks ago, he has not started any chemotherapy or treatment for the diseases. He also complains of 2 episodes of diarrhea in the last 24 hours, he denies any bloody diarrhea. He complains of diffuse abdominal pain, weakness, and increased confusion. Patient states he has had a hard time coming up with what he wants to say. He currently rates his pain a 5 out of 10 on the pain scale, there are no alleviating factors, the pain increases with palpation. Patient denies any for any pain medication at this time. ROS Patient denies any fever, cough, vomiting, or nausea. He states he has felt short of breath at times. He denies any dizziness or vision changes. Denies any chest pain, patient's, or increased swelling in his lower extremities. Patient states that a nurse comes by daily since the liver bx to drain fluid from his abdomen. However, the nurse did not drain fluid today due to his severe weakness. Pt denies head, neck, or extremity pain. He reports low back pain after the falls. All other ROS is neg unless otherwise noted in HPI. (ISABEL DAVIS VEGETABLE SPECKER) Review of Systems Review of Systems See Above (ISABEL DAVIS APRN) Current Medications Current Medications Current Medications Medications (Trade) Dose Ordered Sig/Veto Start Time Stop Time Status Last Admin Dose Admin Calcium Gluconate (Calcium Gluconate) 1,000 mg 1X ONCE 04/07/19 18:45 04/07/19 18:46 DC 04/07/19 19:23 1,000 MG Dextrose (Dextrose 50%-Water Syringe) 25 gm 1X ONCE 04/07/19 18:45 04/07/19 18:46 DC 04/07/19 19:23 25 GM Insulin Human Regular (HumuLIN R VIAL) 10 unit 1X ONCE 04/07/19 18:45 04/07/19 18:46 DC 04/07/19 19:23 10 UNIT Piperacillin Sod/ Tazobactam Sod 4.5 gm/Sodium Chloride 100 ml @ 200 mls/hr 1X ONCE 04/07/19 18:45 04/07/19 19:14 DC 04/07/19 19:36 200 MLS/HR Sodium Chloride 500 ml @ 500 mls/hr 1X ONCE 04/07/19 18:45 04/07/19 19:44 DC 04/07/19 19:36 500 MLS/HR Vancomycin HCl (Vanco Per Pharmacy) 1 each PRN DAILY PRN 04/07/19 18:45 04/08/19 13:14 DC 04/08/19 11:26 1 EACH Vancomycin HCl 1.75 gm/Sodium Chloride 500 ml @ 250 mls/hr 1X ONCE 04/07/19 19:00 04/07/19 20:59 DC 04/07/19 19:36 250 MLS/HR (MADELINE GABRIEL DO) Allergies Allergies Allergies Coded Allergies Type Severity Reaction Last Updated Verified No Known Drug Allergies 02/11/19 No (MADELINE GABRIEL DO) Physical Exam Physical Exam See Above Constitutional: Well developed, appears frail, no acute distress, jaundiced appearance. [] HENT: Normocephalic, atraumatic, bilateral external ears normal, oropharynx dry, no oral exudates, nose normal. [] Eyes: PERRLA, conjunctiva normal, no discharge. [] Neck: Normal range of motion, no stridor. [] Cardiovascular:Heart rate regular rhythm, no murmur [] Lungs & Thorax: Bilateral breath sounds clear to auscultation [] Abdomen: Bowel sounds normal, soft, non-distended, drain in RUQ covered by gauze, LLQ and RLQ TTP, no rebound, no guarding, no masses, no pulsatile masses. [] Skin: Warm, dry, no erythema, no rash, jaundiced [] Back: lumbar TTP Extremities: No clubbing, ROM intact, 1+ edema bilateral feet Neurologic: Alert and oriented to person and president, confused to day and location, no focal deficits noted. [] Psychologic: Affect normal, judgement normal, mood normal. [] (ISABEL DAVIS APRN) Current Patient Data Vital Signs Vital Signs Date Time Temp Pulse Resp B/P (MAP) Pulse Ox O2 Delivery O2 Flow Rate FiO2 04/07/19 19:16 80 92 04/07/19 17:25 98.0 22 133/74 (93) Room Air 98.0 (GABRIELMADELINE Godwin DO) Lab Values Laboratory Tests Test 04/07/19 17:50 04/07/19 18:50 White Blood Count 15.7 x10^3/uL (4.0-11.0) H Red Blood Count 3.96 x10^6/uL (4.30-5.70) L Hemoglobin 13.6 g/dL (13.0-17.5) Hematocrit 39.1 % (39.0-53.0) Mean Corpuscular Volume 99 fL (79-100) Mean Corpuscular Hemoglobin 34 pg (25-35) Mean Corpuscular Hemoglobin Concent 35 g/dL (31-37) Red Cell Distribution Width 17.5 % (11.5-14.5) H Platelet Count 261 x10^3/uL (140-400) Neutrophils (%) (Auto) 86 % (31-73) H Lymphocytes (%) (Auto) 5 % (24-48) L Monocytes (%) (Auto) 8 % (0-9) Eosinophils (%) (Auto) 0 % (0-3) Basophils (%) (Auto) 1 % (0-3) Neutrophils # (Auto) 13.5 x10^3/uL (1.8-7.7) H Lymphocytes # (Auto) 0.8 x10^3/uL (1.0-4.8) L Monocytes # (Auto) 1.2 x10^3/uL (0.0-1.1) H Eosinophils # (Auto) 0.0 x10^3/uL (0.0-0.7) Basophils # (Auto) 0.1 x10^3/uL (0.0-0.2) Segmented Neutrophils % 80 % (35-66) H Band Neutrophils % 7 % (0-9) Lymphocytes % 12 % (24-48) L Monocytes % 1 % (0-10) Toxic Granulation Slight Platelet Estimate Adequate (ADEQUATE) Anisocytosis Slight Prothrombin Time 16.2 SEC (11.7-14.0) H Prothrombin Time INR 1.3 (0.8-1.1) H Activated Partial Thromboplast Time 28 SEC (24-38) Sodium Level 125 mmol/L (136-145) L Potassium Level 7.2 mmol/L (3.5-5.1) *H Chloride Level 92 mmol/L (98-107) L Carbon Dioxide Level 23 mmol/L (21-32) Anion Gap 10 (6-14) Blood Urea Nitrogen 82 mg/dL (8-26) H Creatinine 2.3 mg/dL (0.7-1.3) H Estimated GFR (Cockcroft-Gault) 28.5 BUN/Creatinine Ratio 36 (6-20) H Glucose Level 116 mg/dL (70-99) H Lactic Acid Level 4.3 mmol/L (0.4-2.0) *H Calcium Level 10.7 mg/dL (8.5-10.1) H Magnesium Level 2.6 mg/dL (1.8-2.4) H Total Bilirubin 11.4 mg/dL (0.2-1.0) H Aspartate Amino Transferase (AST) 448 U/L (15-37) H Alanine Aminotransferase (ALT) 221 U/L (16-63) H Alkaline Phosphatase 595 U/L (46-116) H Ammonia 15 mcmol/L (11-34) Troponin I Quantitative < 0.017 ng/mL (0.000-0.055) Total Protein 8.8 g/dL (6.4-8.2) H Albumin 2.0 g/dL (3.4-5.0) L Albumin/Globulin Ratio 0.3 (1.0-1.7) L Lipase 144 U/L (73-393) Urine Collection Type Unknown Urine Color [place] Urine Clarity Clear Urine pH 5.0 Urine Specific [place] 1.020 Urine Protein Negative mg/dL (NEG-TRACE) Urine Glucose (UA) Negative mg/dL (NEG) Urine Ketones (Stick) Negative mg/dL (NEG) Urine Blood Negative (NEG) Urine Nitrite Negative (NEG) Urine Bilirubin Large (NEG) Urine Urobilinogen Dipstick 1.0 mg/dL (0.2 mg/dL) Urine Leukocyte Esterase Small (NEG) Urine RBC 0 /HPF (0-2) Urine WBC Occ /HPF (0-4) Urine Squamous Epithelial Cells Occ /LPF Urine Transitional Epithelial Cells Occ /LPF Urine Amorphous Sediment Present /HPF Urine Bacteria 0 /HPF (0-FEW) Urine Hyaline Casts Moderate /HPF Urine Granular Casts Occasional /HPF Urine Mucus Mod /LPF Laboratory Tests 04/07/19 17:50 Laboratory Tests 04/07/19 17:50 Microbiology 04/07/19 Urine Culture - Final, Complete 04/07/19 Urine Culture Result 1 (EUGENIO) - Final, Complete (MADELINE GABRIEL DO) Lab Values Laboratory Tests Test 04/07/19 17:50 04/07/19 18:50 White Blood Count 15.7 x10^3/uL (4.0-11.0) H Red Blood Count 3.96 x10^6/uL (4.30-5.70) L Hemoglobin 13.6 g/dL (13.0-17.5) Hematocrit 39.1 % (39.0-53.0) Mean Corpuscular Volume 99 fL (79-100) Mean Corpuscular Hemoglobin 34 pg (25-35) Mean Corpuscular Hemoglobin Concent 35 g/dL (31-37) Red Cell Distribution Width 17.5 % (11.5-14.5) H Platelet Count 261 x10^3/uL (140-400) Neutrophils (%) (Auto) 86 % (31-73) H Lymphocytes (%) (Auto) 5 % (24-48) L Monocytes (%) (Auto) 8 % (0-9) Eosinophils (%) (Auto) 0 % (0-3) Basophils (%) (Auto) 1 % (0-3) Neutrophils # (Auto) 13.5 x10^3/uL (1.8-7.7) H Lymphocytes # (Auto) 0.8 x10^3/uL (1.0-4.8) L Monocytes # (Auto) 1.2 x10^3/uL (0.0-1.1) H Eosinophils # (Auto) 0.0 x10^3/uL (0.0-0.7) Basophils # (Auto) 0.1 x10^3/uL (0.0-0.2) Segmented Neutrophils % 80 % (35-66) H Band Neutrophils % 7 % (0-9) Lymphocytes % 12 % (24-48) L Monocytes % 1 % (0-10) Toxic Granulation Slight Platelet Estimate Adequate (ADEQUATE) Anisocytosis Slight Prothrombin Time 16.2 SEC (11.7-14.0) H Prothrombin Time INR 1.3 (0.8-1.1) H Activated Partial Thromboplast Time 28 SEC (24-38) Sodium Level 125 mmol/L (136-145) L Potassium Level 7.2 mmol/L (3.5-5.1) *H Chloride Level 92 mmol/L (98-107) L Carbon Dioxide Level 23 mmol/L (21-32) Anion Gap 10 (6-14) Blood Urea Nitrogen 82 mg/dL (8-26) H Creatinine 2.3 mg/dL (0.7-1.3) H Estimated GFR (Cockcroft-Gault) 28.5 BUN/Creatinine Ratio 36 (6-20) H Glucose Level 116 mg/dL (70-99) H Lactic Acid Level 4.3 mmol/L (0.4-2.0) *H Calcium Level 10.7 mg/dL (8.5-10.1) H Magnesium Level 2.6 mg/dL (1.8-2.4) H Total Bilirubin 11.4 mg/dL (0.2-1.0) H Aspartate Amino Transferase (AST) 448 U/L (15-37) H Alanine Aminotransferase (ALT) 221 U/L (16-63) H Alkaline Phosphatase 595 U/L (46-116) H Ammonia 15 mcmol/L (11-34) Troponin I Quantitative < 0.017 ng/mL (0.000-0.055) Total Protein 8.8 g/dL (6.4-8.2) H Albumin 2.0 g/dL (3.4-5.0) L Albumin/Globulin Ratio 0.3 (1.0-1.7) L Lipase 144 U/L (73-393) Urine Collection Type Unknown Urine Color [place] Urine Clarity Clear Urine pH 5.0 Urine Specific [place] 1.020 Urine Protein Negative mg/dL (NEG-TRACE) Urine Glucose (UA) Negative mg/dL (NEG) Urine Ketones (Stick) Negative mg/dL (NEG) Urine Blood Negative (NEG) Urine Nitrite Negative (NEG) Urine Bilirubin Large (NEG) Urine Urobilinogen Dipstick 1.0 mg/dL (0.2 mg/dL) Urine Leukocyte Esterase Small (NEG) Urine RBC 0 /HPF (0-2) Urine WBC Occ /HPF (0-4) Urine Squamous Epithelial Cells Occ /LPF Urine Transitional Epithelial Cells Occ /LPF Urine Amorphous Sediment Present /HPF Urine Bacteria 0 /HPF (0-FEW) Urine Hyaline Casts Moderate /HPF Urine Granular Casts Occasional /HPF Urine Mucus Mod /LPF Laboratory Tests 04/07/19 17:50 Laboratory Tests 04/07/19 17:50 (ISABEL DAVIS APRN) EKG EKG 1740- SR, rate 96, leftward axis, QRS(T) abnormality consider anteroseptal myocardial damage, no STEMI, read by Dr. Morin. [] (ISABEL DAVIS APRN) Radiology/Procedures Radiology/Procedures PROCEDURE: CT HEAD WO CONTRAST EXAM: CT HEAD WITHOUT CONTRAST. HISTORY: Altered mental status, weakness. TECHNIQUE: Computed tomography of the head was performed without intravenous contrast. COMPARISON: None. FINDINGS: There are limitations from motion artifact on some series. The examination remains diagnostic for the following. There is no intracranial hemorrhage. Hypoattenuation within the periventricular white matter indicates mild chronic microangiopathic change. The ventricles are normal in size and position. The visualized paranasal sinuses appear clear. The orbits are unremarkable. The temporal bones are unremarkable. The calvarium reveals no suspicious lesions. There are atherosclerotic calcifications of the internal carotid arteries. IMPRESSION: 1. No acute intracranial findings. 2. Mild chronic microangiopathic white matter change. CXR- No acute findings, read by Dr. Gabriel PROCEDURE: CHEST AP ONLY Chest radiograph 04/07/2019 6:47 PM INDICATION: Sepsis COMPARISON: CT chest March 02, 2019 TECHNIQUE: Portable upright frontal view of the chest is provided. FINDINGS: The cardiomediastinal silhouette is within normal limits. Pulmonary emphysematous changes are present. There is subsegmental atelectasis and centrilobular infiltrates the right lung base, stable. Trace right pleural effusion appears similar. No pulmonary vascular congestion or pneumothorax. No significant osseous abnormality is identified. IMPRESSION: Stable trace right pleural effusion with adjacent compressive atelectasis versus infiltrate. PROCEDURE: CT ABDOMEN PELVIS WO CONTRAST EXAM: CT ABDOMEN/PELVIS WITHOUT CONTRAST. HISTORY: Abdominal pain. TECHNIQUE: Computed tomography of the abdomen and pelvis was performed without intravenous contrast. COMPARISON: 02/09/2019. FINDINGS: Lung windows through the visualized portions of the bases reveal moderate centrilobular emphysema. There is dependent atelectasis is. There are calcifications of the aortic valve and coronary arteries. There is a trace left pleural effusion. Bone windows reveal no suspicious lesions. Multiple hepatic lesions have progressed since the prior study. There are less well appreciated without contrast. One lesion along the anterior capsule of the left lobe measures 3.1 cm versus 1 cm previously. The liver is overall moderately enlarged. 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 Left adrenal nodule has increased in size and is likely a metastasis. It measures 1.6 cm. A small right adrenal nodule measures 8 mm. There is a vicarious excretion of contrast in the gallbladder. The pancreas is unremarkable without contrast. There are calcified granulomas in the spleen. There are no focal renal lesions without contrast. A peritoneal drain is in place. There is small to moderate ascites. There are scattered prominent lymph nodes within the retroperitoneum. There is no small bowel obstruction. There is wall thickening throughout the right colon and proximal transverse colon. IMPRESSION: 1. Multiple hepatic lesions have increased in size consistent with disease progression. 2. Wall thickening of the right colon may reflect portal hypertension or colitis. Correlate with other data. 3. Findings consistent with bilateral adrenal metastases. 4. Moderate ascites status post peritoneal drainage. [] (ISABEL DAVIS APRN) Course & Med Decision Making Course & Med Decision Making Pertinent Labs and Imaging studies reviewed. (See chart for details) dx: hyperkalemia, hyponatremia, lactic acidosis, dehydration, weakness, abdominal pain, ARF CBC: WBC 15.7, 80% segs, 7% bands; CMP: Na 125, K 7.2, Cl 92, BUN 82, Product Management Analyst 2.3, glucose 116, calcium 10.7, Mg 2.6, bili 11.4, AST 448. ALT 221, Alk phos 595, ammonia 15, troponin <0.017; PT 16.2, INR 1.3; UA large amount of bilirubin otherwise unremarkable CT head negative for acute findings CXR negative for acute changes read by Dr. Gabriel Pt was given 2500 ml of NS in the ER, 1 amp of Calcium gluconate, 10 units of IV insulin, and 1 amp of D50 for treatment of lactic acidosis and hyperkalemia. VSS in the department. 1806- spoke with Dr. Rodriguez and advised of new renal failure, no further recommendations from Dr. Rodriguez 0- Spoke with Dr. Gipson who will admit patient to ICU for weakness, hyperkalemia, hyponatremia, dehydration, and lactic acidosis. Ordered cx of peritoneal fluid. Pt was given zozyn in the ER. Vancomycin also ordered per Dr. Gipson. Will consult infectious disease- Dr. Pickering, nephrology- Dr. Rodriguez, and o ncology Dr. Ugarte. Pt wishes to be DNR. [] (ISABEL DAVIS APRN) Dragon Disclaimer Dragon Disclaimer This electronic medical record was generated, in whole or in part, using a voice recognition dictation system. (ISABEL DAVIS APRN) Departure Departure Impression: Primary Impression: Hyperkalemia Additional Impressions: Hyponatremia Lactic acid acidosis Dehydration Weakness Abdominal pain Acute renal failure (ARF) Disposition: ADMITTED INPATIENT Admitting Physician: Toyin Gipson (ISABEL DAVIS APRN) Condition: STABLE Referrals: TOYIN GIPSON MD (PCP) Scripts Hydromorphone Hcl (HYDROMORPHONE HCL) 2 Mg/1 Ml Vial 1 MG IV PRN Q1HR PRN for PAIN for 30 Days, #120 EACH Prov: TOYIN GIPSON MD 04/10/19 Lorazepam (LORAZEPAM) 2 Mg/1 Ml Vial 1 MG IV PRN Q4HRS PRN for ANXIETY / AGITATION for 30 Days, #120 EACH Prov: TOYIN GIPSON MD 04/10/19 Prochlorperazine Edisylate (PROCHLORPERAZINE EDISYLATE) 10 Mg/2 Ml Vial 10 MG IV PRN Q6HRS PRN for NAUSEA/VOMITING for 30 Days, #120 EACH Prov: TOYIN GIPSON MD 04/10/19 Date and Time of Reassessment Date: Apr 07, 2019 Time: 20:50 (ISABEL DAVIS APRN) Fluid Challenge Is the fluid challenge complet: Yes IBW Target Volume Used: Yes BMI > 30: No (ISABEL DAVIS APRN) Vital Signs Vital Signs: Vital Signs Date Time Temp Pulse Resp B/P (MAP) Pulse Ox O2 Delivery O2 Flow Rate FiO2 04/07/19 19:16 80 92 04/07/19 17:25 98.0 22 133/74 (93) Room Air 98.0 (MADELINE GABRIEL DO) Temperature Source: Oral (ISABEL DAVIS APRN) Respirations Respiratory Effort: Normal Respiratory Pattern: Normal (ISABEL DAVIS APRN) Cardiovascular Pulse Rhythm: Regular Heart: Nml rate, reg. rhythm (ISABEL DAVIS APRN) Lung Sounds Breath Sounds: Clear (ISABEL DAVIS APRN) Capillary Refil Capillary Refill: Lt Hand < 3 seconds (ISABEL DAVIS APRN) Peripheral Pulse Pulse Location: Radial Pulse Strength: Normal (2+) Pulse Assessment Method: Monitor (ISABEL DAVIS APRN) Integumentary Skin: Warm, Dry Skin Moisture: Dry Skin Turgor: Normal Skin Color: no erythema Fingernail Color: WNL (ISABEL DAVIS APRN) Attending Signature Attending Signature I have reviewed the PA/COLD WORKING INSPECTOR's note and plan of care. I was available for consultation as needed during the patient's visit in the emergency department. I agree with the clinical impression, plan, and disposition. (MADELINE GABRIEL DO) Problem Qualifiers Additional Impressions: Abdominal pain Abdominal location: generalized Qualified Codes: R10.84 - Generalized abdominal pain Acute renal failure (ARF) Acute renal failure type: with other specified pathological lesion Qualified Codes: N17.8 - Other acute kidney failure ISABEL DAVIS APRN Apr 07, 2019 17:47 MADELINE GABRIEL DO Apr 11, 2019 15:58
[2019-04-07 18:00] LABS: BASO # 0.1 x10^3/uL (0.0-0.2); BASO % 1 % (0-3); EOS % 0 % (0-3); HEMATOCRIT 39.1 % (39.0-53.0); HEMOGLOBIN 13.6 g/dL (13.0-17.5); LYMPH # 0.8 x10^3/uL (1.0-4.8); LYMPH % 5 % (24-48); MEAN CORPUSCULAR HEMOGLOBIN 34 pg (25-35); MEAN CORPUSCULAR HGB CONC 35 g/dL (31-37); MEAN CORPUSCULAR VOLUME 99 fL (79-100); MONO # 1.2 x10^3/uL (0.0-1.1); MONO % 8 % (0-9); NEUT # 13.5 x10^3/uL (1.8-7.7); NEUT % 86 % (31-73); PLATELET COUNT 261 x10^3/uL (140-400); RED BLOOD COUNT 3.96 x10^6/uL (4.30-5.70); RED CELL DISTRIBUTION WIDTH 17.5 % (11.5-14.5); WHITE BLOOD COUNT 15.7 x10^3/uL (4.0-11.0)
[2019-04-07 18:16] LABS: ALBUMIN/GLOBULIN RATIO 0.3 (1.0-1.7); CALCIUM 10.7 mg/dL (8.5-10.1); CREATININE 2.3 mg/dL (0.7-1.3); GFR 28.5; MAGNESIUM 2.6 mg/dL (1.8-2.4); TOTAL BILIRUBIN 11.4 mg/dL (0.2-1.0); TOTAL PROTEIN 8.8 g/dL (6.4-8.2)
[2019-04-07 18:23] LABS: PROTHROMBIN TIME PATIENT 16.2 SEC (11.7-14.0)
[2019-04-07 18:26] LABS: % BANDS 7 % (0-9); % LYMPHS 12 % (24-48); % MONOS 1 % (0-10); % SEGS 80 % (35-66)
[2019-04-07 18:27] LABS: ANISOCYTOSIS SLIGHT; PLT ESTIMATE ADEQUATE (ADEQUATE); POTASSIUM 7.2 mmol/L (3.5-5.1); TOXIC GRANULATION SLIGHT
[2019-04-07] MEDS ORDERED: DEXTROSE 50% 25 GM / 50ML DISP.SYRIN. IV ONE (18:45)
[2019-04-07] MEDS ORDERED: INSULIN REGULAR 100 UNIT/ML 3ML VIAL. IV ONE (18:45)
[2019-04-07] MEDS ORDERED: PIPERACILLIN/TAZOBACTAM 4.5 GM in IV NORMAL SALINE 100ML 100 ML IV ONE (18:45)
[2019-04-07] MEDS ORDERED: IV NORMAL SALINE 500ML BAG 500 ML IV ONE (18:45)
[2019-04-07] MEDS ORDERED: CALCIUM GLUCONATE 1,000 MG/10 ML VIAL. IVP ONE (18:45)
--- NOTE | 2019-04-07 18:45 | RAD ---
EXAM: CT HEAD WITHOUT CONTRAST. HISTORY: Altered mental status, weakness. TECHNIQUE: Computed tomography of the head was performed without intravenous contrast. COMPARISON: None. FINDINGS: There are limitations from motion artifact on some series. The examination remains diagnostic for the following. There is no intracranial hemorrhage. Hypoattenuation within the periventricular white matter indicates mild chronic microangiopathic change. The ventricles are normal in size and position. The visualized paranasal sinuses appear clear. The orbits are unremarkable. The temporal bones are unremarkable. The calvarium reveals no suspicious lesions. There are atherosclerotic calcifications of the internal carotid arteries. IMPRESSION: 1. No acute intracranial findings. 2. Mild chronic microangiopathic white matter change. *One or more of the following individualized dose reduction techniques were utilized for this examination: 1. Automated exposure control. 2. Adjustment of the mA and/or kV according to patient size. 3. Use of iterative reconstruction technique. Electronically signed by: Mehrdad Freitas MD (04/07/2019 6:42 PM) [facility]
[2019-04-07 18:56] LABS: BILIRUBIN,URINE LARGE (NEG); CLARITY,URINE CLEAR; COLOR,URINE ORANGE; NITRITE,URINE NEGATIVE (NEG); PROTEIN,URINE NEGATIVE (NEG-TRACE)
[2019-04-07] MEDS ORDERED: VANCOMYCIN 1.75 GM in IV NORMAL SALINE 500ML BAG 500 ML IV ONE (19:00)
[2019-04-07 19:05] LABS: AMORPHOUS SEDIMENT,UR PRESENT /HPF; BACTERIA,URINE 0 /HPF (0-FEW); GRANULAR CASTS,URINE OCCASIONAL /HPF; HYALINE CASTS, URINE MODERATE /HPF; RBC,URINE 0 /HPF (0-2); SQUAMOUS EPITHELIAL CELL,UR OCC /LPF; WBC,URINE OCC /HPF (0-4)
[2019-04-07] MEDS ORDERED: VANCOMYCIN 1GM IVPB FOR OMNI 250 ML IV ONE (19:30)
[2019-04-07] MEDS: VANCOMYCIN PER PHARMACY MC PRN (21:09)
--- NOTE | 2019-04-07 21:15 | NUR ---
Pharmacy Vancomycin Dosing Note S:Consulted to monitor and dose vancomycin started 04/07/19. O:FARHEEN TIERNEY is a 68 year old M with Empiric . Height: 6 feet, 1 inches Weight: 74.814774 kg [place] Body Weight: 79.90 Adjusted Body Weight: 77.86 Dosing Weight: Actual Other Antibiotics: LABS: Last BUN: 82 Last Creatinine: 2.3 Creatinine Clearance: 33 mL/min Last WBC: 15.7 Last Procalcitonin: Tmax (past 24 hours): 98.0 Microbiology: I/O: Drug Levels: Last level: on at Last dose given 04/07/19 at 1900 Vancomycin Dosing: Loading Dose: 1750 mg x1 Dosing Weight: Actual Target Trough: 15-20 A: Based on weight and est. CrCl: P: 1. Give Vancomycin 1750mg, followed by Vancomycin 1000 mg IV q24h. 2. Follow up Trough level on 04/09/19 at 1830. 3. Pharmacy will continue to monitor, follow and adjust therapy as needed. Stoney Garcia, [facility], 04/07/19 [id number]
--- NOTE | 2019-04-07 21:24 | RAD ---
EXAM: CT ABDOMEN/PELVIS WITHOUT CONTRAST. HISTORY: Abdominal pain. TECHNIQUE: Computed tomography of the abdomen and pelvis was performed without intravenous contrast. COMPARISON: 02/09/2019. FINDINGS: Lung windows through the visualized portions of the bases reveal moderate centrilobular emphysema. There is dependent atelectasis is. There are calcifications of the aortic valve and coronary arteries. There is a trace left pleural effusion. Bone windows reveal no suspicious lesions. Multiple hepatic lesions have progressed since the prior study. There are less well appreciated without contrast. One lesion along the anterior capsule of the left lobe measures 3.1 cm versus 1 cm previously. The liver is overall moderately enlarged. 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 Left adrenal nodule has increased in size and is likely a metastasis. It measures 1.6 cm. A small right adrenal nodule measures 8 mm. There is a vicarious excretion of contrast in the gallbladder. The pancreas is unremarkable without contrast. There are calcified granulomas in the spleen. There are no focal renal lesions without contrast. A peritoneal drain is in place. There is small to moderate ascites. There are scattered prominent lymph nodes within the retroperitoneum. There is no small bowel obstruction. There is wall thickening throughout the right colon and proximal transverse colon. IMPRESSION: 1. Multiple hepatic lesions have increased in size consistent with disease progression. 2. Wall thickening of the right colon may reflect portal hypertension or colitis. Correlate with other data. 3. Findings consistent with bilateral adrenal metastases. 4. Moderate ascites status post peritoneal drainage. *One or more of the following individualized dose reduction techniques were utilized for this examination: 1. Automated exposure control. 2. Adjustment of the mA and/or kV according to patient size. 3. Use of iterative reconstruction technique. Electronically signed by: Mehrdad Freitas MD (04/07/2019 9:21 PM) [facility]
[2019-04-07 21:30] VITALS: BP 128/67
[2019-04-07 21:45] VITALS: BP 119/60
[2019-04-07 22:00] VITALS: BP 126/60
[2019-04-07 22:15] VITALS: BP 110/60
[2019-04-07 22:30] VITALS: BP 123/57
--- NOTE | 2019-04-07 22:49 | RAD ---
Chest radiograph 04/07/2019 6:47 PM INDICATION: Sepsis COMPARISON: CT chest March 02, 2019 TECHNIQUE: Portable upright frontal view of the chest is provided. FINDINGS: The cardiomediastinal silhouette is within normal limits. Pulmonary emphysematous changes are present. There is subsegmental atelectasis and centrilobular infiltrates the right lung base, stable. Trace right pleural effusion appears similar. No pulmonary vascular congestion or pneumothorax. No significant osseous abnormality is identified. IMPRESSION: Stable trace right pleural effusion with adjacent compressive atelectasis versus infiltrate. Electronically signed by: Marley Contreras MD (04/07/2019 10:46 PM) [facility]
[2019-04-07 22:51] LABS: CALCIUM 10.3 mg/dL (8.5-10.1); GFR 33.5
[2019-04-07 22:54] LABS: POTASSIUM 6.2 mmol/L (3.5-5.1)
[2019-04-07 23:00] VITALS: BP 121/61
[2019-04-07] MEDS ORDERED: MORPHINE SULFATE 2 MG/ML VIAL. IV PRN (23:30)
[2019-04-07] MEDS ORDERED: MORPHINE SULFATE 4 MG/ML VIAL. IV PRN (23:30)
[2019-04-07] MEDS: IV DEXTROSE 5% 250 ML BAG. IV PRN (23:45)
[2019-04-07] MEDS: IV NORMAL SALINE 1000ML BAG 1,000 ML IV SCH (23:46)
[2019-04-08] VITALS (19 sets, daily range): BP systolic 101–141; BP diastolic 51–72
[2019-04-08] MEDS: ONDANSETRON ODT 4 MG TAB.RAPDIS. PO PRN ×3 (04:01→14:06)
[2019-04-08 05:49] LABS: CALCIUM 9.7 mg/dL (8.5-10.1); CREATININE 1.7 mg/dL (0.7-1.3); GFR 40.4
[2019-04-08 05:52] LABS: POTASSIUM 5.6 mmol/L (3.5-5.1)
--- NOTE | 2019-04-08 06:32 | EKG ---
[facility] [address] [place] [address] Test Date: 2019-04-07 Test Time: 17:40:40 Pat Name: FARHEEN TIERNEY Department: Room: 112 1 Gender: M Learning Coach: : 1950 Requested By: ISABEL DAVIS Order Number: [id number] Reading MD: Malcom Vasquez MD Measurements Intervals [place] Rate: 96 P: 30 OK: 156 QRS: -16 QRSD: 78 T: 47 QT: 296 QTc: 379 Interpretive Statements SINUS RHYTHM Electronically Signed On 04-20-2019 0:49:09 CDT by Malcom Vasquez MD
[2019-04-08] MEDS: IV DEXTROSE 5% 250 ML BAG. IV PRN (06:46)
[2019-04-08] MEDS ORDERED: fentaNYL PF VIAL 100 MCG/2 ML VIAL IV PRN ×3 (08:00→09:00)
--- NOTE | 2019-04-08 08:44 | HP ---
ADMIT DATE: CHIEF COMPLAINT AND HISTORY OF PRESENT ILLNESS: This 68-year-old white male who is well known to me from followup in the office. The patient was recently diagnosed with metastatic hepatocellular carcinoma. He has been getting progressively weaker, unable to eat or drink. He has had multiple falls, some diarrhea, presented to the Emergency Room where he was felt to be septic with lactic acidosis, leukocytosis of uncertain source at the time of admission and admitted to the ICU for aggressive treatment. PAST MEDICAL HISTORY: Remarkable for the hepatocellular carcinoma and hepatitis C. MEDICATIONS: Meds are brought with the patient, listed on the computer, have been addressed. ALLERGIES: He has no known drug allergies. SOCIAL HISTORY: He is a nonsmoker, nondrinker, and does not use drugs. He is a . FAMILY HISTORY: Noncontributory. REVIEW OF SYSTEMS: Remarkable for weakness, diarrhea, some shortness of breath, and abdominal pain, which he describes as diffuse and feels like the morphine that he was getting since admission makes it worse or makes something worse about his abdomen and pain medicines will be changed. He does have some low back pain after falls that he has been having recently. PHYSICAL EXAMINATION: GENERAL: He is a cachectic-appearing white male who is jaundiced. VITAL SIGNS: Stable. He is afebrile. HEENT: Remarkable for jaundice. NECK: Supple without adenopathy or thyromegaly. CHEST: Clear to auscultation and percussion. HEART: Regular rate and rhythm without S3, S4 or murmur. ABDOMEN: Soft and nondistended. He does have a right upper quadrant drain present for the recurrent ascites, which was placed a week or so ago. EXTREMITIES: Without cyanosis, clubbing or edema. NEUROLOGIC: Intact. LABORATORY DATA: Lab work on admission is remarkable for white count of 15,700 with left shift. He was initially hyperkalemic with potassium of 7.2 and acute renal failure with a BUN of 82, creatinine 2.3, and lactic acid is 4.3. Albumin is low at 2. Liver function tests are elevated with a bilirubin of 11.4, AST of 448, ALT of 221, and alkaline phosphatase 595. INR is 1.3. Urinalysis does not show any evidence of infection. IMPRESSION: 1. Sepsis. 2. Hyperkalemia. 3. Hyponatremia. 4. Lactic acidosis. 5. Dehydration. 6. Weakness. 7. Abdominal pain. 8. Hepatocellular carcinoma. 9. Acute renal failure. PLAN: The patient has been admitted. Hydration is ongoing. Renal, ID and Oncology have been consulted. I am going to adjust his pain medicine for comfort at this time. There is anything to do for his hepatocellular carcinoma at this time to get started once this event is over where it would seem to me to be the time for hospice. TOYIN LUO MD DR: PHIL/sylvia JOB#: [id number] / [id number]
[2019-04-08] MEDS ORDERED: traMADol 50 MG TABLET PO PRN (09:00)
[2019-04-08] MEDS ORDERED: POLYETHYLENE GLYCOL 3350 17 GM PACKET. PO PRN (09:00)
--- NOTE | 2019-04-08 09:39 | PDOC2 ---
CONSULT Date of Consult Date of Consult DATE: 04/08/19 TIME: 09:21 Reason for Consult Reason for Consult: JAZMIN Identification/Chief Complaint Chief Complaint " I will go on Hospice, just talked to Dr. Guaman" Source Source: Chart review, Patient History of Present Illness Reason for Visit: Pt is a 68-year-old white male recently diagnosed with metastatic hepatocellular carcinoma. He has been getting progressively weaker, unable to eat or drink. He has had multiple falls, some diarrhea, presented to the Emergency Room dx with sepsis, lactic acidosis, leukocytosis of uncertain source at the time of admission Renal consulted for elevated JAZMIN Pt reports he talked to Dr. Guaman this am . He has decided to go for Hospice and waiting for Pat. Denies any N/V. No CP, SOB Social History ALCOHOL: other Drugs: None Current Problem List Problem List Problems Medical Problems: (1) Acute renal failure (ARF) Status: Acute Current Medications Current Medications Current Medications Sodium Chloride 1,000 ml @ 1,000 mls/hr 1X ONCE IV Last administered on 04/07/19 18:04; Start 04/07/19 at 17:30; Stop 04/07/19 at 18:29; Status DC Calcium Gluconate (Calcium Gluconate) 1,000 mg 1X ONCE IVP Last administered on 04/07/19 19:23; Start 04/07/19 at 18:45; Stop 04/07/19 at 18:46; Status DC Dextrose (Dextrose 50%-Water Syringe) 25 gm 1X ONCE IV Last administered on 04/07/19 19:23; Start 04/07/19 at 18:45; Stop 04/07/19 at 18:46; Status DC Insulin Human Regular (HumuLIN R VIAL) 10 unit 1X ONCE IV Last administered on 04/07/19 19:23; Start 04/07/19 at 18:45; Stop 04/07/19 at 18:46; Status DC Piperacillin Sod/ Tazobactam Sod 4.5 gm/Sodium Chloride 100 ml @ 200 mls/hr 1X ONCE IV Last administered on 04/07/19 19:36; Start 04/07/19 at 18:45; Stop 04/07/19 at 19:14; Status DC Vancomycin HCl (Vanco Per Pharmacy) 1 each PRN DAILY PRN MC SEE COMMENTS Last administered on 04/07/19at 21:12; Start 04/07/19 at 18:45 Sodium Chloride 1,000 ml @ 1,000 mls/hr 1X ONCE IV Last administered on 04/07/19at 19:36; Start 04/07/19 at 18:45; Stop 04/07/19 at 19:44; Status DC Sodium Chloride 500 ml @ 500 mls/hr 1X ONCE IV Last administered on 04/07/19at 19:36; Start 04/07/19 at 18:45; Stop 04/07/19 at 19:44; Status DC Vancomycin HCl 1.75 gm/Sodium Chloride 500 ml @ 250 mls/hr 1X ONCE IV Last administered on 04/07/19at 19:36; Start 04/07/19 at 19:00; Stop 04/07/19 at 20:59; Status DC Vancomycin HCl 250 ml @ 250 mls/hr 1X ONCE IV ; Start 04/07/19 at 19:30; Stop 04/07/19 at 20:29; Status UNV Vancomycin HCl 1 gm/Sodium Chloride 250 ml @ 250 mls/hr Q24H IV ; Start 04/08/19 at 19:00 Vancomycin HCl (Vancomycin Trough Level) 1 each 1X ONCE MC ; Start 04/09/19 at 18:30; Stop 04/09/19 at 18:31 Dextrose 250 ml PRN Q15MIN PRN IV SEE COMMENTS Last administered on 04/08/19at 06:47; Start 04/07/19 at 23:00 Sodium Chloride 1,000 ml @ 75 mls/hr [id number] IV Last administered on 04/07/19at 23:46; Start 04/07/19 at 23:30 Morphine Sulfate (Morphine Sulfate) 2 mg PRN Q2HR PRN IV PAIN Last administered on 04/08/19 04:01; Start 04/07/19 at 23:30; Stop 04/08/19 at 07:53; Status DC Morphine Sulfate (Morphine Sulfate) 4 mg PRN Q2HR PRN IV PAIN; Start 04/07/19 at 23:30; Stop 04/08/19 at 07:53; Status DC Ondansetron HCl (Zofran Odt) 4 mg PRN Q6HRS PRN PO NAUSEA/VOMITING Last administered on 04/08/19 04:01; Start 04/07/19 at 23:30 Fentanyl Citrate (Fentanyl 2ml Vial) 25 mcg PRN Q2HR PRN IV PAIN; Start 04/08/19 at 08:00; Stop 04/08/19 at 08:57; Status DC Fentanyl Citrate (Fentanyl 2ml Vial) 50 mcg PRN Q2HR PRN IV PAIN Last administered on 04/08/19at 08:31; Start 04/08/19 at 08:00; Stop 04/08/19 at 08:57; Status DC Docusate Sodium (Colace) 100 mg DAILY PO ; Start 04/08/19 at 09:00 Polyethylene Glycol (miraLAX PACKET) 17 gm PRN DAILY PRN PO CONSTIPATION; Start 04/08/19 at 09:00 Fentanyl Citrate (Fentanyl 2ml Vial) 25 mcg PRN Q1HR PRN IV PAIN; Start 04/08/19 at 09:00 Fentanyl Citrate (Fentanyl 2ml Vial) 50 mcg PRN Q1HR PRN IV PAIN; Start 04/08/19 at 09:00 Tramadol HCl (Ultram) 50 mg PRN Q6HRS PRN PO PAIN; Start 04/08/19 at 09:00 Active Scripts Active Reported Gabapentin (Gabapentin) 300 Mg Capsule 2 Cap PO TID Tramadol Hcl 50 Mg Tablet 100 Mg PO PRN Q6HRS PRN Allergies Allergies: Coded Allergies: No Known Drug Allergies (Unverified , 02/11/19) ROS Review of System Per HPI Physical Exam Physical Exam GENERAL: cachectic , NAD HEENT: jaundice, OM dry NECK: Supple CHEST: Clear to auscultation , No use of accessory muscle HEART: Regular rate and rhythm without S3, ABDOMEN: Soft , Rt upper quadrant drain present for the recurrent ascites, EXTREMITIES: Without cyanosis, clubbing or edema. NEUROLOGIC: AXOX3 - Esposito + Skin No rash Vital Signs Vital Signs Date Time Temp Pulse Resp B/P (MAP) Pulse Ox O2 Delivery O2 Flow Rate FiO2 04/08/19 08:31 23 100 Room Air 04/08/19 06:00 93 101/52 (68) 04/08/19 04:00 97.1 97.1 Assessment & Plan JAZMIN - Pre-renal in the setting of cirrhosis/Hepatocellular Ca, Ascites Improved with IVF Supportive care, Monitor Hyponatremia- suspect sec to Cirrhosis Monitor Hyperkalemia- Mild Hepatocellular Ca/Cirrhosis Ct scan shows new lesions and mets Pt inclining towards Hospice, Dr. guaman saw him this am Ascites- has a Drain, placed last week Sepsis - ID has been consulted Dw Pt and RN Labs Labs Laboratory Tests Test 04/07/19 17:50 04/07/19 18:50 04/07/19 20:45 04/07/19 22:30 White Blood Count 15.7 x10^3/uL (4.0-11.0) Red Blood Count 3.96 x10^6/uL (4.30-5.70) Hemoglobin 13.6 g/dL (13.0-17.5) Hematocrit 39.1 % (39.0-53.0) Mean Corpuscular Volume 99 fL (79-100) Mean Corpuscular Hemoglobin 34 pg (25-35) Mean Corpuscular Hemoglobin Concent 35 g/dL (31-37) Red Cell Distribution Width 17.5 % (11.5-14.5) Platelet Count 261 x10^3/uL (140-400) Neutrophils (%) (Auto) 86 % (31-73) Lymphocytes (%) (Auto) 5 % (24-48) Monocytes (%) (Auto) 8 % (0-9) Eosinophils (%) (Auto) 0 % (0-3) Basophils (%) (Auto) 1 % (0-3) Neutrophils # (Auto) 13.5 x10^3/uL (1.8-7.7) Lymphocytes # (Auto) 0.8 x10^3/uL (1.0-4.8) Monocytes # (Auto) 1.2 x10^3/uL (0.0-1.1) Eosinophils # (Auto) 0.0 x10^3/uL (0.0-0.7) Basophils # (Auto) 0.1 x10^3/uL (0.0-0.2) Segmented Neutrophils % 80 % (35-66) Band Neutrophils % 7 % (0-9) Lymphocytes % 12 % (24-48) Monocytes % 1 % (0-10) Toxic Granulation Slight Platelet Estimate Adequate (ADEQUATE) Anisocytosis Slight Prothrombin Time 16.2 SEC (11.7-14.0) Prothromb Time International Ratio 1.3 (0.8-1.1) Activated Partial Thromboplast Time 28 SEC (24-38) Sodium Level 125 mmol/L (136-145) 128 mmol/L (136-145) Potassium Level 7.2 mmol/L (3.5-5.1) 6.2 mmol/L (3.5-5.1) Chloride Level 92 mmol/L (98-107) 97 mmol/L (98-107) Carbon Dioxide Level 23 mmol/L (21-32) 21 mmol/L (21-32) Anion Gap 10 (6-14) 10 (6-14) Blood Urea Nitrogen 82 mg/dL (8-26) 76 mg/dL (8-26) Creatinine 2.3 mg/dL (0.7-1.3) 2.0 mg/dL (0.7-1.3) Estimated GFR (Cockcroft-Gault) 28.5 33.5 BUN/Creatinine Ratio 36 (6-20) Glucose Level 116 mg/dL (70-99) 47 mg/dL (70-99) Lactic Acid Level 4.3 mmol/L (0.4-2.0) 2.8 mmol/L (0.4-2.0) Calcium Level 10.7 mg/dL (8.5-10.1) 10.3 mg/dL (8.5-10.1) Magnesium Level 2.6 mg/dL (1.8-2.4) Total Bilirubin 11.4 mg/dL (0.2-1.0) Aspartate Amino Transf (AST/SGOT) 448 U/L (15-37) Alanine Aminotransferase (ALT/SGPT) 221 U/L (16-63) Alkaline Phosphatase 595 U/L (46-116) Ammonia 15 mcmol/L (11-34) Troponin I Quantitative < 0.017 ng/mL (0.000-0.055) Total Protein 8.8 g/dL (6.4-8.2) Albumin 2.0 g/dL (3.4-5.0) Albumin/Globulin Ratio 0.3 (1.0-1.7) Lipase 144 U/L (73-393) Urine Collection Type Unknown Urine Color [place] Urine Clarity Clear Urine pH 5.0 Urine Specific Russell 1.020 Urine Protein Negative mg/dL (NEG-TRACE) Urine Glucose (UA) Negative mg/dL (NEG) Urine Ketones (Stick) Negative mg/dL (NEG) Urine Blood Negative (NEG) Urine Nitrite Negative (NEG) Urine Bilirubin Large (NEG) Urine Urobilinogen Dipstick 1.0 mg/dL (0.2 mg/dL) Urine Leukocyte Esterase Small (NEG) Urine RBC 0 /HPF (0-2) Urine WBC Occ /HPF (0-4) Urine Squamous Epithelial Cells Occ /LPF Urine Transitional Epithelial Cells Occ /LPF Urine Amorphous Sediment Present /HPF Urine Bacteria 0 /HPF (0-FEW) Urine Hyaline Casts Moderate /HPF Urine Granular Casts Occasional /HPF Urine Mucus Mod /LPF Test 04/08/19 02:15 04/08/19 05:00 Glucose (Fingerstick) 69 mg/dL (70-99) Sodium Level 126 mmol/L (136-145) Potassium Level 5.6 mmol/L (3.5-5.1) Chloride Level 98 mmol/L (98-107) Carbon Dioxide Level 19 mmol/L (21-32) Anion Gap 9 (6-14) Blood Urea Nitrogen 73 mg/dL (8-26) Creatinine 1.7 mg/dL (0.7-1.3) Estimated GFR (Cockcroft-Gault) 40.4 Glucose Level 63 mg/dL (70-99) Calcium Level 9.7 mg/dL (8.5-10.1) Laboratory Tests Test 04/07/19 17:50 04/07/19 18:50 04/07/19 20:45 04/07/19 22:30 White Blood Count 15.7 x10^3/uL (4.0-11.0) Red Blood Count 3.96 x10^6/uL (4.30-5.70) Hemoglobin 13.6 g/dL (13.0-17.5) Hematocrit 39.1 % (39.0-53.0) Mean Corpuscular Volume 99 fL (79-100) Mean Corpuscular Hemoglobin 34 pg (25-35) Mean Corpuscular Hemoglobin Concent 35 g/dL (31-37) Red Cell Distribution Width 17.5 % (11.5-14.5) Platelet Count 261 x10^3/uL (140-400) Neutrophils (%) (Auto) 86 % (31-73) Lymphocytes (%) (Auto) 5 % (24-48) Monocytes (%) (Auto) 8 % (0-9) Eosinophils (%) (Auto) 0 % (0-3) Basophils (%) (Auto) 1 % (0-3) Neutrophils # (Auto) 13.5 x10^3/uL (1.8-7.7) Lymphocytes # (Auto) 0.8 x10^3/uL (1.0-4.8) Monocytes # (Auto) 1.2 x10^3/uL (0.0-1.1) Eosinophils # (Auto) 0.0 x10^3/uL (0.0-0.7) Basophils # (Auto) 0.1 x10^3/uL (0.0-0.2) Segmented Neutrophils % 80 % (35-66) Band Neutrophils % 7 % (0-9) Lymphocytes % 12 % (24-48) Monocytes % 1 % (0-10) Toxic Granulation Slight Platelet Estimate Adequate (ADEQUATE) Anisocytosis Slight Prothrombin Time 16.2 SEC (11.7-14.0) Prothromb Time International Ratio 1.3 (0.8-1.1) Activated Partial Thromboplast Time 28 SEC (24-38) Sodium Level 125 mmol/L (136-145) 128 mmol/L (136-145) Potassium Level 7.2 mmol/L (3.5-5.1) 6.2 mmol/L (3.5-5.1) Chloride Level 92 mmol/L (98-107) 97 mmol/L (98-107) Carbon Dioxide Level 23 mmol/L (21-32) 21 mmol/L (21-32) Anion Gap 10 (6-14) 10 (6-14) Blood Urea Nitrogen 82 mg/dL (8-26) 76 mg/dL (8-26) Creatinine 2.3 mg/dL (0.7-1.3) 2.0 mg/dL (0.7-1.3) Estimated GFR (Cockcroft-Gault) 28.5 33.5 BUN/Creatinine Ratio 36 (6-20) Glucose Level 116 mg/dL (70-99) 47 mg/dL (70-99) Lactic Acid Level 4.3 mmol/L (0.4-2.0) 2.8 mmol/L (0.4-2.0) Calcium Level 10.7 mg/dL (8.5-10.1) 10.3 mg/dL (8.5-10.1) Magnesium Level 2.6 mg/dL (1.8-2.4) Total Bilirubin 11.4 mg/dL (0.2-1.0) Aspartate Amino Transf (AST/SGOT) 448 U/L (15-37) Alanine Aminotransferase (ALT/SGPT) 221 U/L (16-63) Alkaline Phosphatase 595 U/L (46-116) Ammonia 15 mcmol/L (11-34) Troponin I Quantitative < 0.017 ng/mL (0.000-0.055) Total Protein 8.8 g/dL (6.4-8.2) Albumin 2.0 g/dL (3.4-5.0) Albumin/Globulin Ratio 0.3 (1.0-1.7) Lipase 144 U/L (73-393) Urine Collection Type Unknown Urine Color [place] Urine Clarity Clear Urine pH 5.0 Urine Specific [place] 1.020 Urine Protein Negative mg/dL (NEG-TRACE) Urine Glucose (UA) Negative mg/dL (NEG) Urine Ketones (Stick) Negative mg/dL (NEG) Urine Blood Negative (NEG) Urine Nitrite Negative (NEG) Urine Bilirubin Large (NEG) Urine Urobilinogen Dipstick 1.0 mg/dL (0.2 mg/dL) Urine Leukocyte Esterase Small (NEG) Urine RBC 0 /HPF (0-2) Urine WBC Occ /HPF (0-4) Urine Squamous Epithelial Cells Occ /LPF Urine Transitional Epithelial Cells Occ /LPF Urine Amorphous Sediment Present /HPF Urine Bacteria 0 /HPF (0-FEW) Urine Hyaline Casts Moderate /HPF Urine Granular Casts Occasional /HPF Urine Mucus Mod /LPF Test 04/08/19 02:15 04/08/19 05:00 Glucose (Fingerstick) 69 mg/dL (70-99) Sodium Level 126 mmol/L (136-145) Potassium Level 5.6 mmol/L (3.5-5.1) Chloride Level 98 mmol/L (98-107) Carbon Dioxide Level 19 mmol/L (21-32) Anion Gap 9 (6-14) Blood Urea Nitrogen 73 mg/dL (8-26) Creatinine 1.7 mg/dL (0.7-1.3) Estimated GFR (Cockcroft-Gault) 40.4 Glucose Level 63 mg/dL (70-99) Calcium Level 9.7 mg/dL (8.5-10.1) Review All relevant outside records, renal labs, imaging studies, telemetry/EKG's were reviewed. Images Images CT scan abdomen-- 1. Multiple hepatic lesions have increased in size consistent with disease progression. 2. Wall thickening of the right colon may reflect portal hypertension or colitis. Correlate with other data. 3. Findings consistent with bilateral adrenal metastases. 4. Moderate ascites status post peritoneal drainage. CxR-- Stable trace right pleural effusion with adjacent compressive atelectasis versus infiltrate. MARCELA KNIGHT MD Apr 08, 2019 09:39
--- NOTE | 2019-04-08 09:45 | PDOC2 ---
CONSULT Date of Consult Date of Consult DATE: 04/08/19 TIME: 09:35 Reason for consultation: Liver cancer Consult: Hematology oncology, Dr. Edward Ugarte History of present illness: He is a 68-year-old man with liver mass, large, multiple, progressing over time, associated with pain and ascites, improved with Pleurx drainage, worsened due to recent biopsy showing hepatocellular carcinoma and Hep C. IR unable to do local options at , cirrhosis precluding use of sor afenib, was going to consider palliative nivolumab if insurance would allow, though he came in recently as he's getting worse over time and does show progression of disease with adrenal metastases as well, abdominal pain an issue, fluid from the ascites has been sent for culture per report, and currently pain meds are not working well. Palliative care will see him today. He is tired of dealing with this disease and is ready for hospice at this time. Past medical history: Esophageal varices Pleural effusions Cirrhosis with ascites and splenomegaly Portal vein thrombosis due to tumor Hepatitis C Hepatocellular carcinoma Osteoarthritis Peripheral neuropathy Back pain Depression History of tobacco and alcohol Past surgical history: Liver biopsy Paracenteses with Pleurx drainage Colonoscopy EGD Allergies: No known drug allergies Medications: See attached list Social history: Supportive children, , prior tobacco and alcohol Family history: Negative Review of systems: Weakness, abdominal distention with pain, slight confusion, bruising, dyspnea with exertion, chronic peripheral neuropathy, otherwise 10 point review of systems negative. Physical exam: Vitals reviewed Gen.: A thin elderly man jaundiced with ascites resting in bed, tired HEENT: mucous membranes dry, head normocephalic atraumatic Neck: Supple, no lymphadenopathy Lymph nodes: No palpable lymphadenopathy neck or axilla Lungs: Breathing comfortably at rest, on RA, no respiratory distress Heart: Regular rate and rhythm Abdomen: firm, TTP, slightly distended Extremities: No cyanosis or signif edema, slight tremor Skin: bruising, jaundice Neuro: Alert and oriented �3 Psych: pleasant but tired mood and affect Lab reviewed: White count 15.7, hemoglobin 13.6, platelets 261 MCV 99 INR 1.3 Potassium was 7.2 down to 5.6 Creatinine 1.7 Calcium 10.3 down from 10.7 Lactate 2.8 down from 4.3 Alkaline phosphatase 525 T bili 11.4 Rads reviewed: Chest x-ray stable right trace pleural effusion Head CT with no acute findings Abdominal pelvic CT with multiple hepatic lesions, increased in size, right colon wall thickening, bilateral adrenal gland metastases to 1.6 cm, moderate ascites, portal vein tumor thrombosis Case discussed with: Patient and his nurse, records reviewed in [facility] and [facility], including labs and radiology, please see note for summary details. Assessment and Plan: He is a 68-year-old man with hepatocellular carcinoma and underlying hepatitis C. He has had rapid progression of disease that has precluded the use of local IR therapies, oral chemotherapy, and we were considering palliative nivolumab, but due to rapid decline in performance status and functional status and rapid liver failure w/ progression of disease would recommend hospice at this time. Abdominal pain: Has pain medications, can be titrated as needed Ascites: can be drained as needed, apprec ID assistance, on antibiotics, culture pending I'm told from the peritoneal fluid Hepatocellular carcinoma: Would recommend hospice at this time, Ms. Lacy to see him today Constipation: prn's Renal insufficiency: Appreciate nephrology assistance Hypercalcemia: Appears to be improving with hydration Thank you kindly for this consultation, and please don't hesitate to call with questions. Social History ALCOHOL: other Drugs: None Current Problem List Problem List Problems Medical Problems: (1) Acute renal failure (ARF) Status: Acute Current Medications Current Medications Current Medications Sodium Chloride 1,000 ml @ 1,000 mls/hr 1X ONCE IV Last administered on 04/07/19 18:04; Start 04/07/19 at 17:30; Stop 04/07/19 at 18:29; Status DC Calcium Gluconate (Calcium Gluconate) 1,000 mg 1X ONCE IVP Last administered on 04/07/19 19:23; Start 04/07/19 at 18:45; Stop 04/07/19 at 18:46; Status DC Dextrose (Dextrose 50%-Water Syringe) 25 gm 1X ONCE IV Last administered on 04/07/19 19:23; Start 04/07/19 at 18:45; Stop 04/07/19 at 18:46; Status DC Insulin Human Regular (HumuLIN R VIAL) 10 unit 1X ONCE IV Last administered on 04/07/19 19:23; Start 04/07/19 at 18:45; Stop 04/07/19 at 18:46; Status DC Piperacillin Sod/ Tazobactam Sod 4.5 gm/Sodium Chloride 100 ml @ 200 mls/hr 1X ONCE IV Last administered on 04/07/19 19:36; Start 04/07/19 at 18:45; Stop 04/07/19 at 19:14; Status DC Vancomycin HCl (Vanco Per Pharmacy) 1 each PRN DAILY PRN MC SEE COMMENTS Last administered on 04/07/19at 21:12; Start 04/07/19 at 18:45 Sodium Chloride 1,000 ml @ 1,000 mls/hr 1X ONCE IV Last administered on 04/07/19 19:36; Start 04/07/19 at 18:45; Stop 04/07/19 at 19:44; Status DC Sodium Chloride 500 ml @ 500 mls/hr 1X ONCE IV Last administered on 04/07/19 19:36; Start 04/07/19 at 18:45; Stop 04/07/19 at 19:44; Status DC Vancomycin HCl 1.75 gm/Sodium Chloride 500 ml @ 250 mls/hr 1X ONCE IV Last administered on 04/07/19 19:36; Start 04/07/19 at 19:00; Stop 04/07/19 at 20:59; Status DC Vancomycin HCl 250 ml @ 250 mls/hr 1X ONCE IV ; Start 04/07/19 at 19:30; Stop 04/07/19 at 20:29; Status UNV Vancomycin HCl 1 gm/Sodium Chloride 250 ml @ 250 mls/hr Q24H IV ; Start 04/08/19 at 19:00 Vancomycin HCl (Vancomycin Trough Level) 1 each 1X ONCE MC ; Start 04/09/19 at 18:30; Stop 04/09/19 at 18:31 Dextrose 250 ml PRN Q15MIN PRN IV SEE COMMENTS Last administered on 04/08/19at 06:47; Start 04/07/19 at 23:00 Sodium Chloride 1,000 ml @ 75 mls/hr [id number] IV Last administered on 04/07/19at 23:46; Start 04/07/19 at 23:30 Morphine Sulfate (Morphine Sulfate) 2 mg PRN Q2HR PRN IV PAIN Last administered on 04/08/19 04:01; Start 04/07/19 at 23:30; Stop 04/08/19 at 07:53; Status DC Morphine Sulfate (Morphine Sulfate) 4 mg PRN Q2HR PRN IV PAIN; Start 04/07/19 at 23:30; Stop 04/08/19 at 07:53; Status DC Ondansetron HCl (Zofran Odt) 4 mg PRN Q6HRS PRN PO NAUSEA/VOMITING Last administered on 04/08/19at 04:01; Start 04/07/19 at 23:30 Fentanyl Citrate (Fentanyl 2ml Vial) 25 mcg PRN Q2HR PRN IV PAIN; Start 04/08/19 at 08:00; Stop 04/08/19 at 08:57; Status DC Fentanyl Citrate (Fentanyl 2ml Vial) 50 mcg PRN Q2HR PRN IV PAIN Last administered on 04/08/19at 08:31; Start 04/08/19 at 08:00; Stop 04/08/19 at 08:57; Status DC Docusate Sodium (Colace) 100 mg DAILY PO ; Start 04/08/19 at 09:00 Polyethylene Glycol (miraLAX PACKET) 17 gm PRN DAILY PRN PO CONSTIPATION; Start 04/08/19 at 09:00 Fentanyl Citrate (Fentanyl 2ml Vial) 25 mcg PRN Q1HR PRN IV PAIN; Start 04/08/19 at 09:00 Fentanyl Citrate (Fentanyl 2ml Vial) 50 mcg PRN Q1HR PRN IV PAIN; Start 04/08/19 at 09:00 Tramadol HCl (Ultram) 50 mg PRN Q6HRS PRN PO PAIN; Start 04/08/19 at 09:00 Active Scripts Active Reported Gabapentin (Gabapentin) 300 Mg Capsule 2 Cap PO TID Tramadol Hcl 50 Mg Tablet 100 Mg PO PRN Q6HRS PRN Allergies Allergies: Coded Allergies: No Known Drug Allergies (Unverified , 02/11/19) Vitals VITALS Vital Signs Date Time Temp Pulse Resp B/P (MAP) Pulse Ox O2 Delivery O2 Flow Rate FiO2 04/08/19 09:00 94 12 132/66 (88) 100 Room Air 04/08/19 07:00 97.3 97.3 Labs Labs Laboratory Tests Test 04/07/19 17:50 04/07/19 18:50 04/07/19 20:45 04/07/19 22:30 White Blood Count 15.7 x10^3/uL (4.0-11.0) Red Blood Count 3.96 x10^6/uL (4.30-5.70) Hemoglobin 13.6 g/dL (13.0-17.5) Hematocrit 39.1 % (39.0-53.0) Mean Corpuscular Volume 99 fL (79-100) Mean Corpuscular Hemoglobin 34 pg (25-35) Mean Corpuscular Hemoglobin Concent 35 g/dL (31-37) Red Cell Distribution Width 17.5 % (11.5-14.5) Platelet Count 261 x10^3/uL (140-400) Neutrophils (%) (Auto) 86 % (31-73) Lymphocytes (%) (Auto) 5 % (24-48) Monocytes (%) (Auto) 8 % (0-9) Eosinophils (%) (Auto) 0 % (0-3) Basophils (%) (Auto) 1 % (0-3) Neutrophils # (Auto) 13.5 x10^3/uL (1.8-7.7) Lymphocytes # (Auto) 0.8 x10^3/uL (1.0-4.8) Monocytes # (Auto) 1.2 x10^3/uL (0.0-1.1) Eosinophils # (Auto) 0.0 x10^3/uL (0.0-0.7) Basophils # (Auto) 0.1 x10^3/uL (0.0-0.2) Segmented Neutrophils % 80 % (35-66) Band Neutrophils % 7 % (0-9) Lymphocytes % 12 % (24-48) Monocytes % 1 % (0-10) Toxic Granulation Slight Platelet Estimate Adequate (ADEQUATE) Anisocytosis Slight Prothrombin Time 16.2 SEC (11.7-14.0) Prothromb Time International Ratio 1.3 (0.8-1.1) Activated Partial Thromboplast Time 28 SEC (24-38) Sodium Level 125 mmol/L (136-145) 128 mmol/L (136-145) Potassium Level 7.2 mmol/L (3.5-5.1) 6.2 mmol/L (3.5-5.1) Chloride Level 92 mmol/L (98-107) 97 mmol/L (98-107) Carbon Dioxide Level 23 mmol/L (21-32) 21 mmol/L (21-32) Anion Gap 10 (6-14) 10 (6-14) Blood Urea Nitrogen 82 mg/dL (8-26) 76 mg/dL (8-26) Creatinine 2.3 mg/dL (0.7-1.3) 2.0 mg/dL (0.7-1.3) Estimated GFR (Cockcroft-Gault) 28.5 33.5 BUN/Creatinine Ratio 36 (6-20) Glucose Level 116 mg/dL (70-99) 47 mg/dL (70-99) Lactic Acid Level 4.3 mmol/L (0.4-2.0) 2.8 mmol/L (0.4-2.0) Calcium Level 10.7 mg/dL (8.5-10.1) 10.3 mg/dL (8.5-10.1) Magnesium Level 2.6 mg/dL (1.8-2.4) Total Bilirubin 11.4 mg/dL (0.2-1.0) Aspartate Amino Transf (AST/SGOT) 448 U/L (15-37) Alanine Aminotransferase (ALT/SGPT) 221 U/L (16-63) Alkaline Phosphatase 595 U/L (46-116) Ammonia 15 mcmol/L (11-34) Troponin I Quantitative < 0.017 ng/mL (0.000-0.055) Total Protein 8.8 g/dL (6.4-8.2) Albumin 2.0 g/dL (3.4-5.0) Albumin/Globulin Ratio 0.3 (1.0-1.7) Lipase 144 U/L (73-393) Urine Collection Type Unknown Urine Color [place] Urine Clarity Clear Urine pH 5.0 Urine Specific [place] 1.020 Urine Protein Negative mg/dL (NEG-TRACE) Urine Glucose (UA) Negative mg/dL (NEG) Urine Ketones (Stick) Negative mg/dL (NEG) Urine Blood Negative (NEG) Urine Nitrite Negative (NEG) Urine Bilirubin Large (NEG) Urine Urobilinogen Dipstick 1.0 mg/dL (0.2 mg/dL) Urine Leukocyte Esterase Small (NEG) Urine RBC 0 /HPF (0-2) Urine WBC Occ /HPF (0-4) Urine Squamous Epithelial Cells Occ /LPF Urine Transitional Epithelial Cells Occ /LPF Urine Amorphous Sediment Present /HPF Urine Bacteria 0 /HPF (0-FEW) Urine Hyaline Casts Moderate /HPF Urine Granular Casts Occasional /HPF Urine Mucus Mod /LPF Test 04/08/19 02:15 04/08/19 05:00 Glucose (Fingerstick) 69 mg/dL (70-99) Sodium Level 126 mmol/L (136-145) Potassium Level 5.6 mmol/L (3.5-5.1) Chloride Level 98 mmol/L (98-107) Carbon Dioxide Level 19 mmol/L (21-32) Anion Gap 9 (6-14) Blood Urea Nitrogen 73 mg/dL (8-26) Creatinine 1.7 mg/dL (0.7-1.3) Estimated GFR (Cockcroft-Gault) 40.4 Glucose Level 63 mg/dL (70-99) Calcium Level 9.7 mg/dL (8.5-10.1) Laboratory Tests Test 04/07/19 17:50 04/07/19 18:50 04/07/19 20:45 04/07/19 22:30 White Blood Count 15.7 x10^3/uL (4.0-11.0) Red Blood Count 3.96 x10^6/uL (4.30-5.70) Hemoglobin 13.6 g/dL (13.0-17.5) Hematocrit 39.1 % (39.0-53.0) Mean Corpuscular Volume 99 fL (79-100) Mean Corpuscular Hemoglobin 34 pg (25-35) Mean Corpuscular Hemoglobin Concent 35 g/dL (31-37) Red Cell Distribution Width 17.5 % (11.5-14.5) Platelet Count 261 x10^3/uL (140-400) Neutrophils (%) (Auto) 86 % (31-73) Lymphocytes (%) (Auto) 5 % (24-48) Monocytes (%) (Auto) 8 % (0-9) Eosinophils (%) (Auto) 0 % (0-3) Basophils (%) (Auto) 1 % (0-3) Neutrophils # (Auto) 13.5 x10^3/uL (1.8-7.7) Lymphocytes # (Auto) 0.8 x10^3/uL (1.0-4.8) Monocytes # (Auto) 1.2 x10^3/uL (0.0-1.1) Eosinophils # (Auto) 0.0 x10^3/uL (0.0-0.7) Basophils # (Auto) 0.1 x10^3/uL (0.0-0.2) Segmented Neutrophils % 80 % (35-66) Band Neutrophils % 7 % (0-9) Lymphocytes % 12 % (24-48) Monocytes % 1 % (0-10) Toxic Granulation Slight Platelet Estimate Adequate (ADEQUATE) Anisocytosis Slight Prothrombin Time 16.2 SEC (11.7-14.0) Prothromb Time International Ratio 1.3 (0.8-1.1) Activated Partial Thromboplast Time 28 SEC (24-38) Sodium Level 125 mmol/L (136-145) 128 mmol/L (136-145) Potassium Level 7.2 mmol/L (3.5-5.1) 6.2 mmol/L (3.5-5.1) Chloride Level 92 mmol/L (98-107) 97 mmol/L (98-107) Carbon Dioxide Level 23 mmol/L (21-32) 21 mmol/L (21-32) Anion Gap 10 (6-14) 10 (6-14) Blood Urea Nitrogen 82 mg/dL (8-26) 76 mg/dL (8-26) Creatinine 2.3 mg/dL (0.7-1.3) 2.0 mg/dL (0.7-1.3) Estimated GFR (Cockcroft-Gault) 28.5 33.5 BUN/Creatinine Ratio 36 (6-20) Glucose Level 116 mg/dL (70-99) 47 mg/dL (70-99) Lactic Acid Level 4.3 mmol/L (0.4-2.0) 2.8 mmol/L (0.4-2.0) Calcium Level 10.7 mg/dL (8.5-10.1) 10.3 mg/dL (8.5-10.1) Magnesium Level 2.6 mg/dL (1.8-2.4) Total Bilirubin 11.4 mg/dL (0.2-1.0) Aspartate Amino Transf (AST/SGOT) 448 U/L (15-37) Alanine Aminotransferase (ALT/SGPT) 221 U/L (16-63) Alkaline Phosphatase 595 U/L (46-116) Ammonia 15 mcmol/L (11-34) Troponin I Quantitative < 0.017 ng/mL (0.000-0.055) Total Protein 8.8 g/dL (6.4-8.2) Albumin 2.0 g/dL (3.4-5.0) Albumin/Globulin Ratio 0.3 (1.0-1.7) Lipase 144 U/L (73-393) Urine Collection Type Unknown Urine Color [place] Urine Clarity Clear Urine pH 5.0 Urine Specific [place] 1.020 Urine Protein Negative mg/dL (NEG-TRACE) Urine Glucose (UA) Negative mg/dL (NEG) Urine Ketones (Stick) Negative mg/dL (NEG) Urine Blood Negative (NEG) Urine Nitrite Negative (NEG) Urine Bilirubin Large (NEG) Urine Urobilinogen Dipstick 1.0 mg/dL (0.2 mg/dL) Urine Leukocyte Esterase Small (NEG) Urine RBC 0 /HPF (0-2) Urine WBC Occ /HPF (0-4) Urine Squamous Epithelial Cells Occ /LPF Urine Transitional Epithelial Cells Occ /LPF Urine Amorphous Sediment Present /HPF Urine Bacteria 0 /HPF (0-FEW) Urine Hyaline Casts Moderate /HPF Urine Granular Casts Occasional /HPF Urine Mucus Mod /LPF Test 04/08/19 02:15 04/08/19 05:00 Glucose (Fingerstick) 69 mg/dL (70-99) Sodium Level 126 mmol/L (136-145) Potassium Level 5.6 mmol/L (3.5-5.1) Chloride Level 98 mmol/L (98-107) Carbon Dioxide Level 19 mmol/L (21-32) Anion Gap 9 (6-14) Blood Urea Nitrogen 73 mg/dL (8-26) Creatinine 1.7 mg/dL (0.7-1.3) Estimated GFR (Cockcroft-Gault) 40.4 Glucose Level 63 mg/dL (70-99) Calcium Level 9.7 mg/dL (8.5-10.1) EDWARD UGARTE MD Apr 08, 2019 09:45
[2019-04-08] MEDS: fentaNYL PF VIAL 100 MCG/2 ML VIAL IV PRN ×2 (09:54→11:38)
[2019-04-08] MEDS: DOCUSATE SODIUM 100 MG CAPSULE. PO SCH (10:00)
--- NOTE | 2019-04-08 10:53 | NUR ---
SS following for discharge planning. SS reviewed pt chart. Pt is from home with son and is currently on room air. Per pt's RN, pt diagnosed wiht Lung Cancer six weeks ago and is not pursuing treatment aggressively. SS met with pt and pt reported that he was so tired. Pt agreeable to hospice at this time. Palliative Care consulted. SS will await further recommendations from Palliative Care and will proceed accordingly.
[2019-04-08] MEDS: VANCOMYCIN PER PHARMACY MC PRN (11:22)
--- NOTE | 2019-04-08 13:16 | PDOC ---
Infectious Disease Note Vital Sign Vital Signs Vital Signs Date Time Temp Pulse Resp B/P (MAP) Pulse Ox O2 Delivery O2 Flow Rate FiO2 04/08/19 12:00 Room Air 04/08/19 11:38 28 100 04/08/19 11:00 95 132/57 (82) 04/08/19 07:00 97.3 97.3 Labs Lab Laboratory Tests Test 04/07/19 17:50 04/07/19 18:50 04/07/19 20:45 04/07/19 22:30 White Blood Count 15.7 x10^3/uL (4.0-11.0) Red Blood Count 3.96 x10^6/uL (4.30-5.70) Hemoglobin 13.6 g/dL (13.0-17.5) Hematocrit 39.1 % (39.0-53.0) Mean Corpuscular Volume 99 fL (79-100) Mean Corpuscular Hemoglobin 34 pg (25-35) Mean Corpuscular Hemoglobin Concent 35 g/dL (31-37) Red Cell Distribution Width 17.5 % (11.5-14.5) Platelet Count 261 x10^3/uL (140-400) Neutrophils (%) (Auto) 86 % (31-73) Lymphocytes (%) (Auto) 5 % (24-48) Monocytes (%) (Auto) 8 % (0-9) Eosinophils (%) (Auto) 0 % (0-3) Basophils (%) (Auto) 1 % (0-3) Neutrophils # (Auto) 13.5 x10^3/uL (1.8-7.7) Lymphocytes # (Auto) 0.8 x10^3/uL (1.0-4.8) Monocytes # (Auto) 1.2 x10^3/uL (0.0-1.1) Eosinophils # (Auto) 0.0 x10^3/uL (0.0-0.7) Basophils # (Auto) 0.1 x10^3/uL (0.0-0.2) Segmented Neutrophils % 80 % (35-66) Band Neutrophils % 7 % (0-9) Lymphocytes % 12 % (24-48) Monocytes % 1 % (0-10) Toxic Granulation Slight Platelet Estimate Adequate (ADEQUATE) Anisocytosis Slight Prothrombin Time 16.2 SEC (11.7-14.0) Prothromb Time International Ratio 1.3 (0.8-1.1) Activated Partial Thromboplast Time 28 SEC (24-38) Sodium Level 125 mmol/L (136-145) 128 mmol/L (136-145) Potassium Level 7.2 mmol/L (3.5-5.1) 6.2 mmol/L (3.5-5.1) Chloride Level 92 mmol/L (98-107) 97 mmol/L (98-107) Carbon Dioxide Level 23 mmol/L (21-32) 21 mmol/L (21-32) Anion Gap 10 (6-14) 10 (6-14) Blood Urea Nitrogen 82 mg/dL (8-26) 76 mg/dL (8-26) Creatinine 2.3 mg/dL (0.7-1.3) 2.0 mg/dL (0.7-1.3) Estimated GFR (Cockcroft-Gault) 28.5 33.5 BUN/Creatinine Ratio 36 (6-20) Glucose Level 116 mg/dL (70-99) 47 mg/dL (70-99) Lactic Acid Level 4.3 mmol/L (0.4-2.0) 2.8 mmol/L (0.4-2.0) Calcium Level 10.7 mg/dL (8.5-10.1) 10.3 mg/dL (8.5-10.1) Magnesium Level 2.6 mg/dL (1.8-2.4) Total Bilirubin 11.4 mg/dL (0.2-1.0) Aspartate Amino Transf (AST/SGOT) 448 U/L (15-37) Alanine Aminotransferase (ALT/SGPT) 221 U/L (16-63) Alkaline Phosphatase 595 U/L (46-116) Ammonia 15 mcmol/L (11-34) Troponin I Quantitative < 0.017 ng/mL (0.000-0.055) Total Protein 8.8 g/dL (6.4-8.2) Albumin 2.0 g/dL (3.4-5.0) Albumin/Globulin Ratio 0.3 (1.0-1.7) Lipase 144 U/L (73-393) Urine Collection Type Unknown Urine Color [place] Urine Clarity Clear Urine pH 5.0 Urine Specific [place] 1.020 Urine Protein Negative mg/dL (NEG-TRACE) Urine Glucose (UA) Negative mg/dL (NEG) Urine Ketones (Stick) Negative mg/dL (NEG) Urine Blood Negative (NEG) Urine Nitrite Negative (NEG) Urine Bilirubin Large (NEG) Urine Urobilinogen Dipstick 1.0 mg/dL (0.2 mg/dL) Urine Leukocyte Esterase Small (NEG) Urine RBC 0 /HPF (0-2) Urine WBC Occ /HPF (0-4) Urine Squamous Epithelial Cells Occ /LPF Urine Transitional Epithelial Cells Occ /LPF Urine Amorphous Sediment Present /HPF Urine Bacteria 0 /HPF (0-FEW) Urine Hyaline Casts Moderate /HPF Urine Granular Casts Occasional /HPF Urine Mucus Mod /LPF Test 04/08/19 02:15 04/08/19 05:00 Glucose (Fingerstick) 69 mg/dL (70-99) Sodium Level 126 mmol/L (136-145) Potassium Level 5.6 mmol/L (3.5-5.1) Chloride Level 98 mmol/L (98-107) Carbon Dioxide Level 19 mmol/L (21-32) Anion Gap 9 (6-14) Blood Urea Nitrogen 73 mg/dL (8-26) Creatinine 1.7 mg/dL (0.7-1.3) Estimated GFR (Cockcroft-Gault) 40.4 Glucose Level 63 mg/dL (70-99) Calcium Level 9.7 mg/dL (8.5-10.1) Objective Assessment Abdominal pain Leukocytosis Lactic acidosis JAZMIN Elevated LFTs HCC with disease progression Cirrhosis with ascites, drain in place. Peritoneal fluid culture pending -Previous peritoneal cultures in January were neg Debility Peripheral neuropathy Plan Plan of Care Patient has decided to transition to hospice care Wants pain relief d/c vancomycin D/c Zosyn and trial Unasyn and if helpful transition to po f/u cults Thank you D/w family - stated uncertain if infection is present or if abx will help or make him feel worse but will try D/w pharmacy Attending Co-Sign Attending Co-Sign The patient was seen and interviewed as well as examined at the bedside. The chart was reviewed. The case was discussed. Agree with the plan of care. LINK KEATING APRN Apr 08, 2019 13:16 LUPE ENGLAND MD Apr 08, 2019 13:44
[2019-04-08] MEDS: HYDROmorphone 2 MG/ML VIAL IV PRN ×3 (14:07→22:06)
[2019-04-08] MEDS: IV NORMAL SALINE 1000ML BAG 1,000 ML IV SCH (14:09)
[2019-04-08] MEDS ORDERED: PROCHLORPERAZINE 10 MG/2 ML VIAL. IV PRN (14:30)
--- NOTE | 2019-04-08 15:00 | NUR ---
Report called to Patti PANTOJA on .
--- NOTE | 2019-04-08 15:30 | NUR ---
Drained approx 1000ml of clear yellow fluid from the peritoneal drain, pt slept through the process, no signs of discomfort noted.
[2019-04-08] MEDS: AMPICILLIN/SULBACTAM 3 GM in IV NORMAL SALINE 100ML 100 ML IV SCH ×2 (15:41→22:16)
--- NOTE | 2019-04-08 16:17 | PDOC2 ---
PALLIATIVE CARE Palliative Care Note Palliative Care Consult requested by Dr. Ugarte to address goals of care./hospice Medical Assessment per medical record; 1. Sepsis. 2. Hyperkalemia. 3. Hyponatremia. 4. Lactic acidosis. 5. Dehydration. 6. Weakness. 7. Abdominal pain. 8. Hepatocellular carcinoma. 9. Acute renal failure. Patient with progressive decline, increased pain/ascites Fluid from ascites sent for culture. Patient states he is ready for hospice to Dr. Ugarte Message left at Dr. Gipson's office regarding consult. Patient has received Morphine, Fentanyl without relief of pain. Complains of nausea/vomiting without relief after giving Zofran. Wants to stop all medication because "its not doing any good" Tanja RN discussed pain management with Dr. Gipson. Dilaudid 1mg given with good relief; Compazine 10mg with good relief from pain and nausea. Patient awakens easily Met with Gaston son, Nunu and Sol daughter. Discussed options for care. Patient and family would like to proceed with Hospice care. Will focus on pain and symptom management for now. Family believes he would want to go home. Discussed Hospice Support. Code Status; DNR/DNI. Plan: Continue to monitor for pain and symptom;nausea/vomiting/anxiety. 1630 Patient awakens easily. Orders to transfer to room 510. MARISELA PAREDES Apr 08, 2019 16:17
--- NOTE | 2019-04-08 17:15 | NUR ---
Have received patient to room 510. Patient appears to be sleeping, mouth open, family members at bedside. Dressing right abd dry and intact.
[2019-04-08] MEDS ORDERED: VANCOMYCIN 1 GM in IV NORMAL SALINE 250ML 250 ML IV SCH (19:00)
--- NOTE | 2019-04-08 20:59 | CONS ---
DATE OF CONSULTATION: 04/08/2019 Nishant Knight, nurse practitioner dictating for Dr. Lupe England, Infectious Disease. REFERRED BY: Idania Tang APRN REASON FOR CONSULTATION: Lactic acidosis. HISTORY OF PRESENT ILLNESS: This patient is a 68-year-old male who about 2 months ago was found to have cirrhosis of the liver with ascites, hepatitis C, and a large liver mass. He had several paracenteses and eventually had a tunneled peritoneal drain placed on 03/29/2019. A liver biopsy on 03/31/2019 showed hepatocellular carcinoma. Palliative nivolumab was considered. On 04/07, he presented to the ER with complaints of generalized weakness, falls and worsening abdominal pain. An abdomen/pelvis CT showed multiple hepatic lesions, increased in size, consistent with disease progression; and findings consistent with bilateral adrenal metastasis along with moderate ascites. He had an elevated white blood cell count of 15,700, segs 80% and bands 7%. His lactic was 4.3 and creatinine 2.3. His liver function tests were elevated. A urinalysis was unremarkable for infection. Blood cultures were ordered. Peritoneal fluid was sent for culture. Fluid analysis is not available. He was dosed with vancomycin and Zosyn. ID has been asked to consult for further evaluation and antibiotic management. The patient has decided to transition to hospice care. He wants to focus on his comfort. Right now, he states his pain medications are not working. He feels nauseous and tired. Denies fevers or chills. PAST MEDICAL HISTORY: Cirrhosis of liver with ascites, splenomegaly, esophageal varices, portal vein thrombosis due to tumor, hepatitis C, hepatocellular carcinoma, osteoarthritis, peripheral neuropathy, back pain, depression and B12 deficiency. PAST SURGICAL HISTORY: Liver biopsy on 03/31/2019, peritoneal drain placement on 03/29/2019, colonoscopy and EGD. SOCIAL HISTORY: The patient lives at home with his son. History of alcohol abuse. He quit 3 years ago. History of smoking. FAMILY HISTORY: Noncontributory. ALLERGIES: No known drug allergies. MEDICATIONS: Vancomycin and one-time dose of Zosyn. Other medications are available and have been reviewed on the OCT. REVIEW OF SYSTEMS: Per HPI, otherwise all other review of systems are negative. PHYSICAL EXAMINATION: VITAL SIGNS: Temperature is 97.3, blood pressure 132/57, heart rate 95, respiratory rate 28 and pulse oximetry is 100% on room air. GENERAL: The patient is awake, thin and grimacing. HEENT: Pupils are equally round. Scleral icterus. Oropharynx is dry. NECK: Supple. LUNGS: Diminished aeration in the bases. HEART: S1, S2. ABDOMEN: Mildly distended with ascites, soft and nontender to light palpation. He is guarding his abdomen. Bowel sounds present. Peritoneal catheter covered. No adjacent redness noted. EXTREMITIES: No gross edema or cyanosis. SKIN: Warm to touch. No signs of rash. NEUROLOGIC: Alert and answering questions appropriately. LABORATORY DATA: Recent WBC 15.7, hemoglobin 13.6 and platelets 261,000. Sodium is 126, potassium 5.6, creatinine 1.7 and BUN 73. Lactic acid 2.8 from 4.3, total bilirubin 11.4, AST 448 and ALT 221. Ammonia 15, troponin less than 0.017, albumin 2.0 and lipase 144. Urinalysis, unremarkable for infection. Blood cultures are pending. Abdominal/pelvis CT per HPI. Peritoneal fluid culture in process. IMPRESSION: 1. Abdominal pain. 2. Leukocytosis. 3. Lactic acidosis. 4. Acute kidney injury. 5. Elevated LFTs. 6. Hepatocellular carcinoma with disease progression. 7. Cirrhosis with ascites with a peritoneal drain in place. 8. Debility. 7. Peripheral neuropathy. PLAN: The patient has decided to transition to hospice care. He wants pain relief. He would like a trial of antibiotics if will help with pain relief. It is not certain whether an infection is present or if the antibiotics will help or make him feel worse. After discussion with his family, they wished to try. We will discontinue the vancomycin and started trial of Unasyn. Iif helpful, then will transition to orals pending culture results. Thank you, Idania Tang APRN for asking us to participate in this patient's care. Should you have further questions or concerns, please call. The patient is seen and examined and plan of care implemented by Dr. Lupe England. LUPE ENGLAND MD DR: AKIN/sylvia JOB#: [id number] / [id number] MTDD
[2019-04-09] MEDS: HYDROmorphone 2 MG/ML VIAL IV PRN ×6 (00:25→21:53)
[2019-04-09 02:22] VITALS: BP 125/60
[2019-04-09] MEDS: AMPICILLIN/SULBACTAM 3 GM in IV NORMAL SALINE 100ML 100 ML IV SCH ×2 (04:46→14:00)
[2019-04-09] MEDS: IV NORMAL SALINE 1000ML BAG 1,000 ML IV SCH (04:47)
[2019-04-09 07:00] VITALS: BP 133/75
[2019-04-09] MEDS: DOCUSATE SODIUM 100 MG CAPSULE. PO SCH (08:58)
--- NOTE | 2019-04-09 09:49 | PDOC ---
Infectious Disease Note Subjective Subjective Resting quietly Son reports better pain control Expecting visitors later to today No fevers/vomiting reported Vital Sign Vital Signs Vital Signs Date Time Temp Pulse Resp B/P (MAP) Pulse Ox O2 Delivery O2 Flow Rate FiO2 04/09/19 09:05 Room Air 04/09/19 07:00 98.0 100 16 133/75 (94) 96 98.0 Physical Exam PHYSICAL EXAM GENERAL: Resting quietly, arouses to name, weak HEENT: Scleral icterus. Oropharynx is dry. NECK: Supple. LUNGS: Clear anteriorly, nonlabored HEART: S1, S2. ABDOMEN: Mildly distended with ascites, soft and + guarding, BS present. Peritoneal catheter covered. No adjacent redness noted. EXTREMITIES: No gross edema or cyanosis. SKIN: Warm to touch. No signs of rash. NEUROLOGIC: [facility] Micro Microbiology 04/07/19 Blood Culture - Preliminary, Resulted NO GROWTH AFTER 1 DAY Peritoneal fluid GRAM STAIN RES 2 Final No organisms seen Objective Assessment Abdominal pain - better Leukocytosis Lactic acidosis JAZMIN Elevated LFTs HCC with disease progression Cirrhosis with ascites, drain in place. Peritoneal fluid GS no org -Previous peritoneal cultures in January were neg Debility Peripheral neuropathy Plan Plan of Care Continue trial Unasyn f/u cultures Comfort care D/w family at bedside he wants to stop abx - Will sign off Attending Co-Sign Attending Co-Sign The patient was seen and interviewed as well as examined at the bedside. The chart was reviewed. The case was discussed. Agree with the plan of care. LINK KEATING APRN Apr 09, 2019 09:49 LUPE ENGLAND MD Apr 09, 2019 14:26
[2019-04-09 11:00] VITALS: BP 114/66
--- NOTE | 2019-04-09 11:58 | PDOC ---
GENERAL General: vss and afebrile. awake and alert and family in attendance. dilaudid is helping with pain and compazine with nausea and vomiting. cachectic, jaundiced, chest clear, heart regular, abdomen soft, cultures pending. discussed hospice in detail and all are agreeable but need to see availability of family to be at house as he prefers home. they should have good idea tomorrow and will plan accordingly. cultures still negative to date. VITAL SIGNS/I&O Vital Signs/I&O: Vital Signs Date Time Temp Pulse Resp B/P (MAP) Pulse Ox O2 Delivery O2 Flow Rate FiO2 04/09/19 10:13 Room Air 04/09/19 07:00 98.0 100 16 133/75 (94) 96 98.0 I & O 04/08/19 04/08/19 04/09/19 14:59 22:59 06:59 Intake Total 120 ml 1434 ml 1220 ml Output Total 300 ml 1100 ml 1000 ml Balance -180 ml 334 ml 220 ml ALLERGIES Allergies: Allergies Coded Allergies Type Severity Reaction Last Updated Verified No Known Drug Allergies 02/11/19 No MEDS Medications: Current Medications Medications (Trade) Dose Ordered Sig/Veto Route PRN Reason Start Time Stop Time Status Last Admin Dose Admin Ampicillin Sodium/ Sulbactam Sodium 3 gm/Sodium Chloride 100 ml @ 200 mls/hr Q8H IV 04/08/19 14:00 04/09/19 04:48 Hydromorphone HCl (Dilaudid) 1 mg PRN Q1HR PRN IV PAIN 04/08/19 14:00 04/09/19 04:48 Prochlorperazine Edisylate (Compazine) 10 mg PRN Q6HRS PRN IV NAUSEA/VOMITING 04/08/19 14:30 04/08/19 15:34 Nutrition Consultation Dietary Evaluation: Recommendations by RD: Increase Calorie Intake, Protein supplementation Comments: REC regular diet, honor food preferences, and provide snacks/oral supplements as able/per pt preference, pt is agreeable to hospice at this time Expected Outcomes/Goals: Nutrition as appropraite per goals of care Interpretation of weight loss: >7.5% in 3 months Malnutrition Findings: Food and Nutrition Intake (Sev: <50% est energy req 5days Weight Status: Underweight TOYIN LUO MD Apr 09, 2019 11:58
[2019-04-09 15:00] VITALS: BP 97/58
[2019-04-09 19:00] VITALS: BP 112/60
--- NOTE | 2019-04-09 23:32 | NUR ---
Spoke with patient's family and asked if they wanted routine vitals to be taken on their father who is on comfort care. They stated that since it will not change the course of his care, they would rather not disturb him any more than necessary. I did explain about the turning every 2 hours to prevent bed sores since he is incontinent, and they were fine with that as long as there wasn't increased agitation from their father. Will continue to monitor
[2019-04-10] MEDS: HYDROmorphone 2 MG/ML VIAL IV PRN ×5 (00:17→13:34)
[2019-04-10 07:00] VITALS: BP 91/52
[2019-04-10] MEDS: DOCUSATE SODIUM 100 MG CAPSULE. PO SCH (07:38)
--- NOTE | 2019-04-10 12:34 | PDOC ---
GENERAL General: vss and afebrile. cachectic, jaundiced, unresponsive. chest clear, heart regula r, abdomen soft. family present and states patient wants to be sedated and pain free and is ready for . approved to go to hospice house but no beds available currently. no iv fluids and essentially no po intake. continue comfort care with transfer to hospice house when bed available. VITAL SIGNS/I&O Vital Signs/I&O: Vital Signs Date Time Temp Pulse Resp B/P (MAP) Pulse Ox O2 Delivery O2 Flow Rate FiO2 04/10/19 10:18 91 Room Air 04/10/19 07:00 98.4 102 91/52 (65) 98.4 04/09/19 19:00 20 I & O 04/09/19 04/09/19 04/10/19 15:00 23:00 07:00 Intake Total 240 ml Balance 240 ml ALLERGIES Allergies: Allergies Coded Allergies Type Severity Reaction Last Updated Verified No Known Drug Allergies 02/11/19 No MEDS Medications: Current Medications Medications (Trade) Dose Ordered Sig/Veto Route PRN Reason Start Time Stop Time Status Last Admin Dose Admin Lorazepam (Ativan Inj) 1 mg PRN Q4HRS PRN IV ANXIETY / AGITATION 04/09/19 15:15 04/10/19 10:18 Nutrition Consultation Dietary Evaluation: Recommendations by RD: Increase Calorie Intake, Protein supplementation Comments: REC regular diet, honor food preferences, and provide snacks/oral supplements as able/per pt preference, pt is agreeable to hospice at this time Expected Outcomes/Goals: Nutrition as appropraite per goals of care Interpretation of weight loss: >7.5% in 3 months Malnutrition Findings: Food and Nutrition Intake (Sev: <50% est energy req 5days Weight Status: Underweight TOYIN LUO MD Apr 10, 2019 12:34
[2019-04-10] MEDS ORDERED: HYDR2VIA2 IV (12:38)
[2019-04-10] MEDS ORDERED: LORA2VIA IV (12:38)
[2019-04-10] MEDS ORDERED: PROC10VI IV (12:38)
--- NOTE | 2019-04-10 17:40 | NUR ---
Patient this shift. Verified by two RN's, family at bedside. Time of 1544. MD Leonela notified. Nursing supervisor of guidance and testing notified. [facility] Home notified. Patients son wished to stay at bedside till Home was able to cotton picker operator the body. Spoke with Gaston Valentine the dietary director, he stated that was fine to keep the patient in his room and that they could pick him and not to bag or tag the patient. Security notified.
--- NOTE | 2019-04-10 18:27 | NUR ---
home arrived at 182, patient walked off the unit by sports book writer and security.
== END 2019-04-10 18:28 | disposition expired | DRG 871 ==
LOC: ER 17:03 → 1 WEST ICU 19:20 → 5 NORTH 04-08 17:15
PROVIDERS: ADMIT Family Medicine; ATTEND Family Medicine
DX: A41.9 Sepsis, unspecified organism (principal); K72.00 Acute and subacute hepatic failure without coma; E43 Unspecified severe protein-calorie malnutrition; G93.41 Metabolic encephalopathy; E87.1 Hypo-osmolality and hyponatremia; N17.9 Acute kidney failure, unspecified; C22.0 Liver cell carcinoma; R18.8 Other ascites; E87.5 Hyperkalemia; E86.0 Dehydration; K74.60 Unspecified cirrhosis of liver; F32.9 Major depressive disorder, single episode, unspecified; M19.90 Unspecified osteoarthritis, unspecified site; G62.9 Polyneuropathy, unspecified; B19.20 Unspecified viral hepatitis C without hepatic coma; K59.00 Constipation, unspecified; E83.52 Hypercalcemia; Z51.5 Encounter for palliative care; Z66 Do not resuscitate; R29.6 Repeated falls; Z87.891 Personal history of nicotine dependence; Z68.20 Body mass index [BMI] 20.0-20.9, adult
CPT/HCPCS: 36415; 70450; 71045; 74176; 80048; 80053; 81001; 82140; 82962; 83605; 83690; 83735; 84484; 85007; 85025; 85610; 85730; 87040; 87071; 87075; 87086; 87641; 93005; 96361; 96365; 96366; 96368; 96375; J0295; J0610; J0780; J1170; J1815; J2060; J2270; J2543; J3010; J3370; J7030; J7040; J7042; Q0162; 99285-25; G0378